=== PATIENT | female | born 1935 | race Caucasian/White ===

== ENCOUNTER → 2016-06-10 | Outpatient (CLI) | payer MEDICARE, OTHER ==
[2016-01-08 13:32] VITALS: BP 160/82
[~2016-06-10] MED LIST: ASPI-482 PO; CALC-481 PO; LANS30CA17 PO; LEVO112T4 PO; MULT-208 PO; NAPR550T3 PO; RANI150T6 PO
[2016-06-10 20:26] LABS: BF CLARITY CLOUDY; BF COLOR YELLOW
== END | disposition home or self-care (01) ==
LOC: SPEC 15:50
PROVIDERS: ATTEND Orthopaedic Surgery
DX: M25.462 Effusion, left knee (principal)
CPT/HCPCS: 87071; 87075; 87205; 89050

== ENCOUNTER → 2016-07-28 | Outpatient (CLI) | payer MEDICARE, OTHER ==
[2016-01-08 13:32] VITALS: BP 160/82
--- NOTE | 2016-07-28 13:46 | KCIC ---
LOWER EXT JOINT WO LT dated 07/28/2016 12:30 PM Indication: Knee pain for one year. Comparison: No comparison is available. Technique: Routine multiplanar multisequence imaging performed. No contrast administered. Findings: Focal areas of bone marrow edema within the subchondral marrow of the lateral femoral condyle and lateral tibial plateau with associated prominent osteochondral defects. The osteochondral defect at the lateral femoral condyle measures 7 x 10 mm with small in situ bone fragments. Fluid bright T2 signal interposed between the bone fragment and donor bone. Osteochondral defect at the lateral tibial plateau measures 7 x 13 mm with no in situ fragment and mild articular surface depression. Marrow signal is otherwise homogeneous. Mild tricompartmental hypertrophic changes, most severe in the lateral compartment. Full-thickness cartilage loss at the patellar apex and medial and lateral femoral trochlea. No definite full-thickness defect of the medial compartment cartilage. Moderate-sized joint effusion. Small popliteal cyst. No intra-articular loose body. Anterior cruciate and posterior cruciate ligaments are intact. Medial and lateral collateral complexes are intact. Iliotibial band, popliteus tendon and pes anserine complex within normal limits. Quadriceps and patellar tendon are intact. Mild increased signal within the substance of the mid patellar tendon and distal patellar tendon. No abnormality of the medial or lateral retinaculum. Horizontal oblique tear posterior horn of lateral meniscus extends to the tibial articular surface. There is also blunted morphology of the anterior horn, body and posterior horn. There is linear signal within the posterior horn and body medial meniscus that does not definitely reach an articular surface. IMPRESSION: 1. Subchondral edema within the lateral femoral condyle and lateral tibial plateau with associated osteochondral defects. In the absence of known trauma, this could be related to spontaneous osteonecrosis or impacted subchondral stress fractures. There may be a small unstable osteochondral fragment at the lateral femoral condyle. 2. Moderate size joint effusion and tiny popliteal cyst. 3. Tricompartmental degenerative arthrosis and chondral malacia. Full-thickness cartilage loss at the lateral and anterior compartments. 4. Severe degenerative tearing of the lateral meniscus. 5. Mild patellar tendinosis. Electronically signed by: Te Zamora MD (07/28/2016 1:43 PM)
== END | disposition home or self-care (01) ==
LOC: KCIC MRI 11:59
PROVIDERS: ATTEND Orthopaedic Surgery
DX: M25.562 Pain in left knee (principal); M25.462 Effusion, left knee
CPT/HCPCS: 73721

== ENCOUNTER 2016-08-02 03:50 | Inpatient (IN) | payer MEDICARE, OTHER ==
[~2016-08-02] VITALS: Ht 157.5 cm; Wt 73.5 kg
[2016-08-02] MEDS ORDERED: IV NORMAL SALINE 1000ML BAG 1,000 ML IV SCH (04:23)
[2016-08-02 04:54] LABS: CALCIUM 9.3 mg/dL (8.5-10.1); CREATININE 1.1 mg/dL (0.6-1.0); GFR 47.7; POTASSIUM 4.6 mmol/L (3.5-5.1)
[2016-08-02 04:55] LABS: BASO # 0.1 x10^3/uL (0.0-0.2); BASO % 1 % (0-3); EOS % 2 % (0-3); HEMATOCRIT 38.1 % (36.0-47.0); HEMOGLOBIN 12.6 g/dL (12.0-15.5); LYMPH # 2.4 x10^3/uL (1.0-4.8); LYMPH % 29 % (24-48); MEAN CORPUSCULAR HEMOGLOBIN 29 pg (25-35); MEAN CORPUSCULAR HGB CONC 33 g/dL (31-37); MEAN CORPUSCULAR VOLUME 89 fL (79-100); MONO % 10 % (0-9); NEUT % 58 % (31-73); PLATELET COUNT 276 x10^3/uL (140-400); RED BLOOD COUNT 4.29 x10^6/uL (3.50-5.40); RED CELL DISTRIBUTION WIDTH 13.8 % (11.5-14.5); WHITE BLOOD COUNT 8.1 x10^3/uL (4.0-11.0)
[2016-08-02 04:59] LABS: ALBUMIN 3.6 g/dL (3.4-5.0); ALBUMIN/GLOBULIN RATIO 1.1 (1.0-1.7); TOTAL BILIRUBIN 0.5 mg/dL (0.2-1.0)
[2016-08-02] MEDS ORDERED: ONDANSETRON PF 4 MG/2 ML VIAL. IV ONE (05:00)
[2016-08-02] MEDS: fentaNYL PF VIAL 100 MCG/2 ML VIAL IV PRN ×2 (05:00→05:49)
[2016-08-02] MEDS: IV NORMAL SALINE 1000ML BAG 1,000 ML IV SCH ×3 (05:17→20:44)
[2016-08-02 05:18] LABS: BILIRUBIN,URINE NEGATIVE (NEG); GLUCOSE,URINE NEGATIVE (NEG); NITRITE,URINE NEGATIVE (NEG); PROTEIN,URINE NEGATIVE (NEG-TRACE); UROBILINOGEN,URINE 0.2 mg/dL (0.2 mg/dL)
[2016-08-02 05:22] LABS: BACTERIA,URINE 0 /HPF (0-FEW); RBC,URINE 0 /HPF (0-2); SQUAMOUS EPITHELIAL CELL,UR FEW /LPF
--- NOTE | 2016-08-02 05:22 | PHYS DOC ---
Past Medical History Past Medical History: Arthritis, Hypothyroid Past Surgical History: Cholecystectomy, Hysterectomy, Tonsillectomy Alcohol Use: None Drug Use: None Adult General Chief Complaint Chief Complaint: LOWER EXT PAIN HPI HPI Patient is a 81 year old female who presents with complaint of left knee pain. Patient states that she was attempting to ambulate to the restroom earlier this evening when her left knee "locked up." Patient states that she started having severe pain to the left knee and states that she is unable to ambulate even with use of roller walker. The patient states that she is recently diagnosed with severe degenerative joint disease of the left knee and a torn left meniscus. Patient follows with Dr. Hong of orthopedic surgery. Patient states that she has been recommended to have a total knee arthroplasty done due to the severity of her joint disease. Patient currently states she is unable to fully extend her left knee secondary to pain. Patient denies any fall or significant trauma to the left knee. Patient rates her pain currently as 10 out of 10. Due to inability ambulate, EMS was called and brought patient to the emergency department for further evaluation. Review of Systems Review of Systems Constitutional: Denies fever or chills [] Eyes: Denies change in visual acuity, redness, or eye pain [] HENT: Denies nasal congestion or sore throat [] Respiratory: Denies cough or shortness of breath [] Cardiovascular: Denies chest pain or edema [] GI: Denies abdominal pain, nausea, vomiting, bloody stools or diarrhea [] : Denies dysuria or hematuria [] Musculoskeletal: Left knee pain [] Integument: Denies rash or skin lesions [] Neurologic: Denies headache, focal weakness or sensory changes [] Current Medications Current Medications Current Medications Medications (Trade) Dose Ordered Sig/Chloe Start Time Stop Time Status Last Admin Dose Admin Fentanyl Citrate (Fentanyl 2ml Vial) 25 mcg PRN Q15MIN PRN 08/02/16 04:30 08/03/16 04:29 08/02/16 05:00 25 MCG Ondansetron HCl (Zofran) 4 mg 1X ONCE 08/02/16 05:00 08/02/16 05:02 DC 08/02/16 05:00 4 MG Sodium Chloride 1,000 ml @ 100 mls/hr Q10H 08/02/16 04:23 08/02/16 14:22 08/02/16 04:45 100 MLS/HR Allergies Allergies Allergies Coded Allergies Type Severity Reaction Last Updated Verified atropine Allergy Intermediate 01/08/16 No carbamazepine Allergy Intermediate 01/08/16 Yes codeine Allergy Intermediate 01/08/16 Yes hydrocodone Allergy Intermediate 01/08/16 No hyoscyamine Allergy Intermediate 01/08/16 No latex Allergy Intermediate Rash 01/08/16 Yes penicillin Allergy Intermediate 01/08/16 Yes phenobarbital Allergy Intermediate 01/08/16 No scopolamine Allergy Intermediate 01/08/16 No Sulfa (Sulfonamide Antibiotics) Adverse Reaction Intermediate RASH 08/02/16 Yes tramadol Adverse Reaction Mild Nausea 08/02/16 Yes Physical Exam Physical Exam Constitutional: Alert, afebrile, appears in moderate discomfort. [] HENT: Normocephalic, atraumatic, bilateral external ears normal, oropharynx moist, no oral exudates, nose normal. [] Eyes: PERRLA, EOMI, conjunctiva normal, no discharge. [] Neck: Normal range of motion, no tenderness, supple, no stridor. [] Cardiovascular:Heart rate regular rhythm, no murmur [] Lungs & Thorax: Bilateral breath sounds clear to auscultation [] Abdomen: Bowel sounds normal, soft, no tenderness, no masses, no pulsatile masses. [] Skin: Warm, dry, no erythema, no rash. [] Back: No tenderness, no CVA tenderness. [] Extremities: Left knee with moderate inferior and lateral soft tissue swelling, held in flexed position, anterior and lateral joint space tenderness to palpation, no cyanosis, no clubbing, unable to extend left knee with passive range of motion secondary to pain, no edema. [] Neurologic: Alert and oriented X 3, normal motor function, normal sensory function, no focal deficits noted. [] Current Patient Data Vital Signs Vital Signs Date Time Temp Pulse Resp B/P (MAP) Pulse Ox O2 Delivery O2 Flow Rate FiO2 08/02/16 05:00 20 96 Room Air 08/02/16 03:58 98.5 77 211/87 (128) 98.5 Lab Values Laboratory Tests Test 08/02/16 04:06 08/02/16 05:00 White Blood Count 8.1 x10^3/uL (4.0-11.0) Red Blood Count 4.29 x10^6/uL (3.50-5.40) Hemoglobin 12.6 g/dL (12.0-15.5) Hematocrit 38.1 % (36.0-47.0) Mean Corpuscular Volume 89 fL (79-100) Mean Corpuscular Hemoglobin 29 pg (25-35) Mean Corpuscular Hemoglobin Concent 33 g/dL (31-37) Red Cell Distribution Width 13.8 % (11.5-14.5) Platelet Count 276 x10^3/uL (140-400) Neutrophils (%) (Auto) 58 % (31-73) Lymphocytes (%) (Auto) 29 % (24-48) Monocytes (%) (Auto) 10 % (0-9) H Eosinophils (%) (Auto) 2 % (0-3) Basophils (%) (Auto) 1 % (0-3) Neutrophils # (Auto) 4.7 x10^3uL (1.8-7.7) Lymphocytes # (Auto) 2.4 x10^3/uL (1.0-4.8) Monocytes # (Auto) 0.8 x10^3/uL (0.0-1.1) Eosinophils # (Auto) 0.2 x10^3/uL (0.0-0.7) Basophils # (Auto) 0.1 x10^3/uL (0.0-0.2) Sodium Level 139 mmol/L (136-145) Potassium Level 4.6 mmol/L (3.5-5.1) Chloride Level 103 mmol/L (98-107) Carbon Dioxide Level 26 mmol/L (21-32) Anion Gap 10 (6-14) Blood Urea Nitrogen 29 mg/dL (7-20) H Creatinine 1.1 mg/dL (0.6-1.0) H Estimated GFR (Cockcroft-Gault) 47.7 BUN/Creatinine Ratio 26 (6-20) H Glucose Level 106 mg/dL (70-99) H Calcium Level 9.3 mg/dL (8.5-10.1) Total Bilirubin 0.5 mg/dL (0.2-1.0) Aspartate Amino Transferase (AST) 18 U/L (15-37) Alanine Aminotransferase (ALT) 18 U/L (14-59) Alkaline Phosphatase 78 U/L (46-116) Total Protein 7.0 g/dL (6.4-8.2) Albumin 3.6 g/dL (3.4-5.0) Albumin/Globulin Ratio 1.1 (1.0-1.7) Urine Collection Type Unknown Urine Color Yellow Urine Clarity Clear Urine pH 6.0 Urine Specific [place] <=1.005 Urine Protein Negative mg/dL (NEG-TRACE) Urine Glucose (UA) Negative mg/dL (NEG) Urine Ketones (Stick) Negative mg/dL (NEG) Urine Blood Negative (NEG) Urine Nitrite Negative (NEG) Urine Bilirubin Negative (NEG) Urine Urobilinogen Dipstick 0.2 mg/dL (0.2 mg/dL) Urine Leukocyte Esterase Trace (NEG) Urine RBC 0 /HPF (0-2) Urine WBC 1-4 /HPF (0-4) Urine Squamous Epithelial Cells Few /LPF Urine Transitional Epithelial Cells Occ /LPF Urine Bacteria 0 /HPF (0-FEW) Laboratory Tests 08/02/16 04:06 Laboratory Tests 08/02/16 04:06 EKG EKG Not performed [] Radiology/Procedures Radiology/Procedures 3 view left knee x-ray interpreted by me: Severe lateral compartment degenerative disease, no acute fractures, normal alignment [] Course & Med Decision Making Course & Med Decision Making Pertinent Labs and Imaging studies reviewed. (See chart for details) The patient was started on IV fentanyl in the emergency department. Patient's pain has improved mildly. Patient continues to have difficulty with pain in her left knee and is unable to ambulate in her current state. The patient will be admitted for treatment of intractable pain. Patient admitted to Dr. May. Latasha Disclaimer Latasha Disclaimer This electronic medical record was generated, in whole or in part, using a voice recognition dictation system. Departure Departure Impression: Primary Impression: Intractable pain Additional Impressions: Unable to ambulate Degenerative arthritis of left knee Disposition: ADMITTED INPATIENT Admitting Physician: Lianet May Condition: STABLE Referrals: JAMES SHERIDAN Jr, MD (PCP) Problem Qualifiers Additional Impressions: Degenerative arthritis of left knee Osteoarthritis type: primary Qualified Codes: M17.12 - Unilateral primary osteoarthritis, left knee ABHIJIT GANDHI MD August 02, 2016 05:22
[2016-08-02] MEDS ORDERED: ONDANSETRON PF 4 MG/2 ML VIAL. IV PRN (05:30)
[2016-08-02] MEDS ORDERED: ACETAMINOPHEN 325 MG TABLET. PO PRN (05:30)
[2016-08-02] MEDS ORDERED: fentaNYL PF VIAL 100 MCG/2 ML VIAL IV PRN ×2 (05:30→09:00)
--- NOTE | 2016-08-02 05:34 | ACF ---
Admission Forms Criteria MUSCULOSKELETAL DISEASE GRG Clinical Indications for Admission to Inpatient Care (Place 'X' for any and all applicable criteria): Hospital admission is needed for appropriate care of the patient because of 1 or more of the following: [X]I. Fracture, dislocation, or other musculoskeletal injury requiring inpatient care(medical) as indicated by 1 or more of the following(4)(5)(6)(7) [ ]a) Vertebral fracture requiring observation for instability or neurologic compromise (8) [ ]b) Compartment syndrome (proven or cannot be ruled out during observation level of care) (9) [ ]c) Limb-threatening injury [ ]d) Major injury requiring inpatient stabilization such as traction initiation or external fixation before internal fixation or closure of complex or open fracture [ ]e) Major injury requiring inpatient treatment after emergency or observation level care (as appropriate) [X]f) Severe pain requiring acute inpatient management [ ]g) Injury with suspicion of abuse or neglect (eg., child, dependent elderly) [ ]II. Newly diagnosed or suspected bone, joint, or orthopedic device infection (e.g., osteomyelitis, septic arthritis) needing 1 or more of the following(1)(2)(3) [ ]a) IV antibiotics that cannot be initiated in other than inpatient setting (e.g., patient too unstable or home infusion not available) [ ]b) Device removal or replacement [ ]c) Bone or soft tissue debridement [ ]d) Joint drainage (drain placement or repetitive aspirations) [ ]III. Severe rheumatologic disease (e.g., systemic lupus erythematosus, rheumatoid arthritis) with complications or comorbidities (Also use Optimal Recovery Care Criteria or General Recovery Criteria as appropriate on the basis of predominant condition), including 1 or more of the following( 10)(11)(12)(13) [ ]a) Severe infection (e.g., TERRITORY ACCOUNT EXECUTIVE infection, sepsis) (14) [ ]b) Respiratory complications, including 1 or more of the following : [ ]i) Pleural effusion with respiratory compromise [ ]ii) Pulmonary hypertension with congestive failure [ ]iii) Respiratory failure [ ]iv) Pulmonary hemorrhage (15) [ ]c) Hematologic disease, including 1 or more of the following: [ ]i) Coagulopathy with bleeding [ ]ii) Thrombosis with hypercoagulable state [ ]iii) Thrombotic thrombocytopenic purpura [ ]d) Cerebritis with seizures, psychosis, or other severe abnormalities [ ]e) Vertebral destruction with monitoring needed for cervical myelopathy& possible respiratory compromise [ ]f) Exacerbation that requires inpatient treatment (e.g., intravenous immunosuppression) (16) [ ]g) Acute renal failure [ ]h) Cerebritis with seizures, psychosis, Altered mental status, or other neurologic abnormalities [ ]i) Pericardial effusion with tamponade [ ]j) Vertebral destruction, with monitoring needed for cervical myelopathy and possible respiratory compromise [ ]IV. Severe vasculitis with complications or comorbidities (Also use Optimal Recovery Care Criteria General Recovery Criteria as appropriate on the basis of predominant condition), including 1 or more of the following(11)(12)(17)(18)(19)(20) [ ]a) Exacerbation that requires inpatient treatment (e.g., intravenous immunosuppression) (19)(21) [ ]b) Pulmonary hemorrhage (15) [ ]c) TERRITORY ACCOUNT EXECUTIVE vasculitis with seizures, psychosis, Altered mental status that is severe or persistent, or other severe abnormalities (22) [ ]d) Cerebral infarction [ ]e) Gastrointestinal ischemia [ ]f) Gangrene or threatened amputation [ ]g) Renal failure (16) [ ]h) Other significant complications of vasculitis ( eg., tissue or organ ischemia, organ dysfunction ) [ ]V. Severe myopathy as indicated by 1 or more of the following (28)(29) [ ]a) New onset of airway compromise or inability to swallow [ ]b) Respiratory deterioration with observation needed for impending respiratory failure [ ]c) Exacerbation that requires inpatient treatment (e.g., intravenous immunosuppression) [ ]. Severe crystal gout (arthropathy) indicated by 1 or more of the following (23)(24) [ ]a) Severe pain requiring acute inpatient management [ ]b) Exacerbation that requires inpatient treatment (e.g., intravenous treatment) [ ]VII.Rhabdomyolysis and 1 or more of the following (25)(26)(27) [ ]a) Acute renal failure [ ]b) Need for intravenous hydration after emergency or observation level care (as appropriate) [ ]c) Inability to maintain oral hydration [ ]d) Change in mental status [ ]e) Electrolyte abnormality that remains after emergency or observation level care (as appropriate) [ ]VIII Post amputation complication, as indicated by ANY ONE of the following [ ]a) Infection [ ]b) Dehiscence [ ]c) Myodesis failure [ ]IX. Severe pain requiring acute inpatient management due to musculoskeletal condition [ ]X. Musculoskeletal Disease and ALL of the following: [ ]a) Symptom or finding for which emergency and observation care have failed or are not considered appropriate (Use General Criteria: Observation Care as appropriate) [ ]b) Presence of ANY ONE of the following [ ]i) A General Admission Criteria [ ]ii) A Pediatric General Admission Criteria The original [facility] [employer]ed [employer] content created by [facility] [employer] has been revised. The portions of the content which have been revised are identified through the use of italic text or in bold, and [facility] has neither reviewed nor approved the modified material. All other unmodified content is copyright [facility]. Please see references footnoted in the original [facility] edition 2016 Admission Criteria Met?: Yes CARLOS DONNELLY August 02, 2016 05:34
[2016-08-02 07:00] VITALS: BP 156/60
--- NOTE | 2016-08-02 07:44 | RAD ---
Left knee 3 views. History: Left knee pain, unable to straighten knee 3 views were taken of the left knee. There is a displaced bone fragment off the lateral aspect of the lateral femoral condyle with the small bone fragment at the lateral margin of the joint. There is joint space narrowing in the lateral joint compartment. 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 The pattern was noted on the recent MRI study although the bone fragment is now displaced. There is a prominent joint effusion. Impression: 1. Displaced bone fragment off the lateral aspect of the lateral femoral condyle with joint space narrowing laterally. 2. Large joint effusion.
[2016-08-02] MEDS ORDERED: FLUT9.9S NS (08:25)
[2016-08-02] MEDS ORDERED: OMEP20TA63 PO (08:25)
[2016-08-02] MEDS ORDERED: CIPR250T30 PO (08:25)
[2016-08-02] MEDS ORDERED: ACET500T68 PO (08:25)
[2016-08-02] MEDS ORDERED: NAPR500T PO (08:25)
[2016-08-02] MEDS ORDERED: CALC600T4 PO (08:25)
[2016-08-02] MEDS ORDERED: CETI10TA2 PO (08:25)
[2016-08-02] MEDS ORDERED: MORPHINE SULFATE 4 MG/ML DISP.SYRIN. IV PRN (09:00)
[2016-08-02] MEDS ORDERED: oxyCODONE IR 5 MG TABLET PO PRN (09:00)
--- NOTE | 2016-08-02 09:39 | PDOC1 ---
History and Physical Date of Admission Date of Admission DATE: 08/02/16 TIME: 09:33 Identification/Chief Complaint Chief Complaint knee pain Problems: Source Source: Chart review, Patient History of Present Illness History of Present Illness Ms. Perea, is a 81 year old female who cannot ambulate, 10/10 left knee pain. She saw Dr. Hong last week, and total knee arthroplasty was recommended. Her left knee "locked up." New 10/10, severe pain to the left knee and states that she is unable to ambulate even with use of roller walker. Pain 3/ 10 while in bed, she is unable to raise her foot off the bed surface without severe pain. Noted Hx of severe degenerative joint disease of the left knee and a torn left meniscus. Past Medical History Cardiovascular: No pertinent hx Pulmonary: No pertinent hx GI: Constipation Musculoskeletal: low back pain Rheumatologic: No pertinent hx Infectious disease: No pertinent hx Family History Family History: No Significant Social History Smoke: No ALCOHOL: none Current Problem List Problem List Problems Medical Problems: (1) Degenerative arthritis of left knee Status: Acute (2) Intractable pain Status: Acute (3) Unable to ambulate Status: Acute Problems: Current Medications Current Medications Current Medications Sodium Chloride 1,000 ml @ 100 mls/hr Q10H IV Last administered on 08/02/16 04:45; Start 08/02/16 at 04:23; Stop 08/02/16 at 14:22 Ondansetron HCl (Zofran) 4 mg 1X ONCE IV Last administered on 08/02/16 05:00 ; Start 08/02/16 at 05:00; Stop 08/02/16 at 05:02; Status DC Fentanyl Citrate (Fentanyl 2ml Vial) 25 mcg PRN Q15MIN PRN IV PAIN GREATER THAN 3/10 Last administered on 08/02/16 05:49; Start 08/02/16 at 04:30; Stop at 09:00; Status DC Ondansetron HCl (Zofran) 4 mg PRN Q8HRS PRN IV NAUSEA/VOMITING; Start 08/02/16 at 05:30; Stop 08/03/16 at 05:29 Fentanyl Citrate (Fentanyl 2ml Vial) 50 mcg PRN Q2HR PRN IV SEVERE PAIN Last administered on 08/02/16 07:32; Start 08/02/16 at 05:30; Stop 08/02/16 at 09:05 ; Status DC Sodium Chloride 1,000 ml @ 125 mls/hr Q8H IV Last administered on 08/02/16t 05 :17; Start 08/02/16 at 05:17; Stop 08/03/16 at 05:16 Acetaminophen (Tylenol) 650 mg PRN Q4HRS PRN PO FEVER; Start 08/02/16 at 05:30 ; Stop 08/03/16 at 05:29 Acetaminophen (Tylenol) 1,000 mg PRN Q8HRS PRN PO PAIN; Start 08/02/16 at 09:00 Aspirin (Ecotrin) 81 mg DAILY PO ; Start 08/02/16 at 09:00 Cetirizine HCl (ZyrTEC) 20 mg HS PO ; Start 08/02/16 at 21:00 Levothyroxine Sodium (Synthroid) 112 mcg DAILYAC PO ; Start 08/03/16 at 07:30 Naproxen (Naprosyn) 500 mg BID PO ; Start 08/02/16 at 09:00 Fluticasone Propionate (Flonase) 2 spray DAILY NS ; Start 08/03/16 at 09:00 Pantoprazole Sodium (Protonix) 40 mg DAILYAC PO ; Start 08/02/16 at 09:30 Famotidine (Pepcid) 20 mg HS PO ; Start 08/02/16 at 21:00 Oxycodone HCl (Roxicodone) 5 mg PRN Q6HRS PRN PO PAIN; Start 08/02/16 at 09:00 ; Status UNV Morphine Sulfate 4 mg PRN Q2HR PRN IV PAIN; Start 08/02/16 at 09:00; Status UNV Fentanyl Citrate (Fentanyl 2ml Vial) 50 mcg PRN Q2HR PRN IV PAIN; Start at 09:00 Active Scripts Active Reported Calcium (Calcium Carbonate) 600 Mg Tablet 600 Mg PO BID All Day Allergy (Cetirizine Hcl) 10 Mg Tablet 20 Mg PO HS Acetaminophen 500 Mg Tablet 1,000 Mg PO PRN Flonase Allergy Relief (Fluticasone Propionate) 9.9 Ml [place].susp 2 Sprays NS DAILY Cipro (Ciprofloxacin Hcl) 250 Mg Tablet 1 Tab PO BID Naprosyn (Naproxen) 500 Mg Tablet 500 Mg PO BID Prilosec Otc (Omeprazole Magnesium) 20 Mg Tablet. 1 Tab PO DAILY Multi-Day Vitamins (Multivitamin) 1 Each Tablet 1 Tab PO DAILY Zantac (Ranitidine Hcl) 150 Mg Tablet 150 Mg PO DAILY Aspir 81 (Aspirin) 81 Mg Tablet. 1 Tab PO DAILY Levothyroxine Sodium 112 Mcg Tablet 112 Mcg PO DAILYAC Allergies Allergies: Coded Allergies: atropine (Unverified Allergy, Intermediate, 01/08/16) carbamazepine (Verified Allergy, Intermediate, 01/08/16) codeine (Verified Allergy, Intermediate, 01/08/16) hydrocodone (Unverified Allergy, Intermediate, 01/08/16) hyoscyamine (Unverified Allergy, Intermediate, 01/08/16) latex (Verified Allergy, Intermediate, Rash, 01/08/16) penicillin (Verified Allergy, Intermediate, 01/08/16) phenobarbital (Unverified Allergy, Intermediate, 01/08/16) scopolamine (Unverified Allergy, Intermediate, 01/08/16) Sulfa (Sulfonamide Antibiotics) (Verified Adverse Reaction, Intermediate, RASH, 08/02/16) tramadol (Verified Adverse Reaction, Mild, Nausea, 08/02/16) ROS General: No: Chills, Night Sweats, Fatigue, Malaise, Appetite, Other PSYCHOLOGICAL ROS: No: Anxiety, Behavioral Disorder, Concentration difficultie , Decreased libido, Depression, Disorientation, Hallucinations, Hostility, Irritablity, Memory difficulties, Mood Swings, Obsessive thoughts, Physical abuse, Sexual abuse, Sleep disturbances, Suicidal ideation, Other Eyes: No Blurry vision, No Decreased vision, No Double vision, No Dry eyes, No Excessive tearing, No Eye Pain, No Itchy Eyes, No Loss of vision, No Photophobia , No Scotomata, No Uses contacts, No Uses glasses, No Other HEENT: No: Heacaches, Visual Changes, Hearing change, Nasal congestion, Nasal discharge, Oral lesions, Sinus pain, Sore Throat, Epistaxis, Sneezing, Snoring, Tinnitus, Vertigo, Vocal changes, Other ENDOCRINE: No: Breast Changes, Galactorrhea, Hair Pattern Changes, Hot Flashes , Malaise/lethargy, Mood Swings, Palpitations, Polydipsia/polyuria, Skin Changes , Temperature Intolerance, Unexpected Weight Changes, Other Breast: No New/Changing Breast Lumps, No Nipple changes, No Nipple discharge, No Other Respiratory: No: Cough, Hemoptysis, Orthopnea, Pleuritic Pain, Shortness of breath, SOB with excertion, Sputum Changes, Stridor, Tachypnea, Wheezing, Other Cardiovascular: No Chest Pain, No Palpitations, No Orthopnea, No Paroxysmal Noc. Dyspnea, No Edema, No Lt Headedness, No Other Gastrointestinal: No Nausea, No Vomiting, No Abdominal Pain, No Diarrhea, No Constipation, No Melena, No Hematochezia, No Other Genitourinary: No Dysuria, No Frequency, No Incontinence, No Hematuria, No Retention, No Discharge, No Urgency, No Pain, No Flank Pain, No Other, No , No , No , No , No , No , No Musculoskeletal: Yes Gait Disturbance, Yes Joint Pain, Yes Joint Stiffness, No Joint Swelling, No Muscle Pain, No Muscular Weakness, No Pain In:, No Swelling In:, No Other Neurological: No Behavorial Changes, No Bowel/Bladder ControlChng, No Confusion , No Dizziness, No Gait Disturbance, No Headaches, No Impaired Coord/balance, No Memory Loss, No Numbness/Tingling, No Seizures, No Speech Problems, No Tremors, No Visual Changes, No Weakness, No Other Skin: No Dry Skin, No Eczema, No Hair Changes, No Lumps, No Mole Changes, No Mottling, No Nail Changes, No Pruritus, No Rash, No Skin Lesion Changes, No Other, No Acne Physical Exam General: Alert, Oriented X3, Cooperative HEENT: Atraumatic, PERRLA Lungs: Clear to auscultation Heart: S1S2, RRR Abdomen: Normal bowel sounds, Soft Extremities: No clubbing, No cyanosis Skin: No rashes, No breakdown Neuro: Normal gait, Normal speech Psych/Mental Status: Mental status NL Vitals Vitals Vital Signs Date Time Temp Pulse Resp B/P (MAP) Pulse Ox O2 Delivery O2 Flow Rate FiO2 08/02/16 07:00 98.4 75 18 156/60 (92) 94 Room Air 98.4 Labs Labs Laboratory Tests Test 08/02/16 04:06 08/02/16 05:00 White Blood Count 8.1 x10^3/uL (4.0-11.0) Red Blood Count 4.29 x10^6/uL (3.50-5.40) Hemoglobin 12.6 g/dL (12.0-15.5) Hematocrit 38.1 % (36.0-47.0) Mean Corpuscular Volume 89 fL (79-100) Mean Corpuscular Hemoglobin 29 pg (25-35) Mean Corpuscular Hemoglobin Concent 33 g/dL (31-37) Red Cell Distribution Width 13.8 % (11.5-14.5) Platelet Count 276 x10^3/uL (140-400) Neutrophils (%) (Auto) 58 % (31-73) Lymphocytes (%) (Auto) 29 % (24-48) Monocytes (%) (Auto) 10 % (0-9) Eosinophils (%) (Auto) 2 % (0-3) Basophils (%) (Auto) 1 % (0-3) Neutrophils # (Auto) 4.7 x10^3uL (1.8-7.7) Lymphocytes # (Auto) 2.4 x10^3/uL (1.0-4.8) Monocytes # (Auto) 0.8 x10^3/uL (0.0-1.1) Eosinophils # (Auto) 0.2 x10^3/uL (0.0-0.7) Basophils # (Auto) 0.1 x10^3/uL (0.0-0.2) Sodium Level 139 mmol/L (136-145) Potassium Level 4.6 mmol/L (3.5-5.1) Chloride Level 103 mmol/L (98-107) Carbon Dioxide Level 26 mmol/L (21-32) Anion Gap 10 (6-14) Blood Urea Nitrogen 29 mg/dL (7-20) Creatinine 1.1 mg/dL (0.6-1.0) Estimated GFR (Cockcroft-Gault) 47.7 BUN/Creatinine Ratio 26 (6-20) Glucose Level 106 mg/dL (70-99) Calcium Level 9.3 mg/dL (8.5-10.1) Total Bilirubin 0.5 mg/dL (0.2-1.0) Aspartate Amino Transf (AST/SGOT) 18 U/L (15-37) Alanine Aminotransferase (ALT/SGPT) 18 U/L (14-59) Alkaline Phosphatase 78 U/L (46-116) Total Protein 7.0 g/dL (6.4-8.2) Albumin 3.6 g/dL (3.4-5.0) Albumin/Globulin Ratio 1.1 (1.0-1.7) Urine Collection Type Unknown Urine Color Yellow Urine Clarity Clear Urine pH 6.0 Urine Specific [place] <=1.005 Urine Protein Negative mg/dL (NEG-TRACE) Urine Glucose (UA) Negative mg/dL (NEG) Urine Ketones (Stick) Negative mg/dL (NEG) Urine Blood Negative (NEG) Urine Nitrite Negative (NEG) Urine Bilirubin Negative (NEG) Urine Urobilinogen Dipstick 0.2 mg/dL (0.2 mg/dL) Urine Leukocyte Esterase Trace (NEG) Urine RBC 0 /HPF (0-2) Urine WBC 1-4 /HPF (0-4) Urine Squamous Epithelial Cells Few /LPF Urine Transitional Epithelial Cells Occ /LPF Urine Bacteria 0 /HPF (0-FEW) Laboratory Tests Test 08/02/16 04:06 08/02/16 05:00 White Blood Count 8.1 x10^3/uL (4.0-11.0) Red Blood Count 4.29 x10^6/uL (3.50-5.40) Hemoglobin 12.6 g/dL (12.0-15.5) Hematocrit 38.1 % (36.0-47.0) Mean Corpuscular Volume 89 fL (79-100) Mean Corpuscular Hemoglobin 29 pg (25-35) Mean Corpuscular Hemoglobin Concent 33 g/dL (31-37) Red Cell Distribution Width 13.8 % (11.5-14.5) Platelet Count 276 x10^3/uL (140-400) Neutrophils (%) (Auto) 58 % (31-73) Lymphocytes (%) (Auto) 29 % (24-48) Monocytes (%) (Auto) 10 % (0-9) Eosinophils (%) (Auto) 2 % (0-3) Basophils (%) (Auto) 1 % (0-3) Neutrophils # (Auto) 4.7 x10^3uL (1.8-7.7) Lymphocytes # (Auto) 2.4 x10^3/uL (1.0-4.8) Monocytes # (Auto) 0.8 x10^3/uL (0.0-1.1) Eosinophils # (Auto) 0.2 x10^3/uL (0.0-0.7) Basophils # (Auto) 0.1 x10^3/uL (0.0-0.2) Sodium Level 139 mmol/L (136-145) Potassium Level 4.6 mmol/L (3.5-5.1) Chloride Level 103 mmol/L (98-107) Carbon Dioxide Level 26 mmol/L (21-32) Anion Gap 10 (6-14) Blood Urea Nitrogen 29 mg/dL (7-20) Creatinine 1.1 mg/dL (0.6-1.0) Estimated GFR (Cockcroft-Gault) 47.7 BUN/Creatinine Ratio 26 (6-20) Glucose Level 106 mg/dL (70-99) Calcium Level 9.3 mg/dL (8.5-10.1) Total Bilirubin 0.5 mg/dL (0.2-1.0) Aspartate Amino Transf (AST/SGOT) 18 U/L (15-37) Alanine Aminotransferase (ALT/SGPT) 18 U/L (14-59) Alkaline Phosphatase 78 U/L (46-116) Total Protein 7.0 g/dL (6.4-8.2) Albumin 3.6 g/dL (3.4-5.0) Albumin/Globulin Ratio 1.1 (1.0-1.7) Urine Collection Type Unknown Urine Color Yellow Urine Clarity Clear Urine pH 6.0 Urine Specific [place] <=1.005 Urine Protein Negative mg/dL (NEG-TRACE) Urine Glucose (UA) Negative mg/dL (NEG) Urine Ketones (Stick) Negative mg/dL (NEG) Urine Blood Negative (NEG) Urine Nitrite Negative (NEG) Urine Bilirubin Negative (NEG) Urine Urobilinogen Dipstick 0.2 mg/dL (0.2 mg/dL) Urine Leukocyte Esterase Trace (NEG) Urine RBC 0 /HPF (0-2) Urine WBC 1-4 /HPF (0-4) Urine Squamous Epithelial Cells Few /LPF Urine Transitional Epithelial Cells Occ /LPF Urine Bacteria 0 /HPF (0-FEW) VTE Prophylaxis Ordered VTE Prophylaxis Devices: No VTE Pharmacological Prophylaxi: Yes Assessment/Plan Assessment/Plan knee pain severe pain, unable to ambulate, 10/10 pain, unable to do ADLs mult drug allergies, pain control with tylenol, NSAID, fentanyl, may try oxycodone, hx of nausea and vomiting with codeine hypothyroid GERD 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
[2016-08-02] MEDS: PANTOPRAZOLE 40 MG TABLET.DR. PO SCH (10:03)
[2016-08-02] MEDS: ASPIRIN ENTERIC COATED 81 MG TABLET.DR. PO SCH (10:04)
[2016-08-02] MEDS: NAPROXEN 500 MG TABLET PO SCH ×2 (10:04→20:45)
[2016-08-02] MEDS: ACETAMINOPHEN 500 MG TABLET PO PRN ×2 (10:06→23:22)
[2016-08-02 11:00] VITALS: BP 136/62
--- NOTE | 2016-08-02 12:13 | PDOC2 ---
CONSULT Date of Consult Date of Consult DATE: 08/02/16 TIME: 12:04 Reason for Consult Reason for Consult: left kne Identification/Chief Complaint Chief Complaint left knee locked up Source Source: Caregiver, Chart review, Patient History of Present Illness Reason for Visit: 81 year old familiar to me from office visits last 2 months. Presented with recurrent effusions, initially treated with aspiration and cortisone injections. Office x-rays a few months ago showed minimal joint space narrowing , so MRI ordered to evaluate for meniscus tear. The MRI showed lateral meniscus tear, osteonecrosis, and osteoarthritis. Nonop treatment was continued , with plans to consider elective TKA. She finished oral steroid dosepack Tuesday. She also started Cipro Tuesday. Now her knee is locked up and the osteonecrosis fragment is a loose body. We discussed options. Although a TKA is probably going to be needed, TKA is contra-indicated with the recent corticosteroid injections. Current literature supports waiting 12 weeks after cortisone injection in the affected joint before arthroplasty, to avoid risks of prosthetic joint infection. I discussed all of this with her, and her son, her DIL who is an ortho nurse, and other family. Past Medical History Past Medical History she had iron deficiency anemia recently, but it's been treated with iron infusion, and last hgb was 12.6 Cardiovascular: No pertinent hx Pulmonary: No pertinent hx GI: Constipation Musculoskeletal: low back pain Rheumatologic: No pertinent hx Infectious disease: No pertinent hx Family History Family History: No Significant Social History No ALCOHOL: none Current Problem List Problem List Problems Medical Problems: (1) Degenerative arthritis of left knee Status: Acute (2) Intractable pain Status: Acute (3) Unable to ambulate Status: Acute Current Medications Current Medications Current Medications Sodium Chloride 1,000 ml @ 100 mls/hr Q10H IV Last administered on 08/02/16 04:45; Start 08/02/16 at 04:23; Stop 08/02/16 at 14:22 Ondansetron HCl (Zofran) 4 mg 1X ONCE IV Last administered on 08/02/16 05:00 ; Start 08/02/16 at 05:00; Stop 08/02/16 at 05:02; Status DC Fentanyl Citrate (Fentanyl 2ml Vial) 25 mcg PRN Q15MIN PRN IV PAIN GREATER THAN 3/10 Last administered on 08/02/16 05:49; Start 08/02/16 at 04:30; Stop at 09:00; Status DC Ondansetron HCl (Zofran) 4 mg PRN Q8HRS PRN IV NAUSEA/VOMITING; Start 08/02/16 at 05:30; Stop 08/03/16 at 05:29 Fentanyl Citrate (Fentanyl 2ml Vial) 50 mcg PRN Q2HR PRN IV SEVERE PAIN Last administered on 08/02/16 07:32; Start 08/02/16 at 05:30; Stop 08/02/16 at 09:05 ; Status DC Sodium Chloride 1,000 ml @ 125 mls/hr Q8H IV Last administered on 08/02/16 05 :17; Start 08/02/16 at 05:17; Stop 08/03/16 at 05:16 Acetaminophen (Tylenol) 650 mg PRN Q4HRS PRN PO FEVER; Start 08/02/16 at 05:30 ; Stop 08/03/16 at 05:29 Acetaminophen (Tylenol) 1,000 mg PRN Q8HRS PRN PO PAIN Last administered on 10:06; Start 08/02/16 at 09:00 Aspirin (Ecotrin) 81 mg DAILY PO Last administered on 08/02/16 10:04; Start at 09:00 Cetirizine HCl (ZyrTEC) 20 mg HS PO ; Start 08/02/16 at 21:00 Levothyroxine Sodium (Synthroid) 112 mcg DAILYAC PO ; Start 08/03/16 at 07:30 Naproxen (Naprosyn) 500 mg BID PO Last administered on 08/02/16 10:04; Start 08/02/16 at 09:00 Fluticasone Propionate (Flonase) 2 spray DAILY NS ; Start 08/03/16 at 09:00 Pantoprazole Sodium (Protonix) 40 mg DAILYAC PO Last administered on 08/02/16 10:03; Start 08/02/16 at 09:30 Famotidine (Pepcid) 20 mg HS PO ; Start 08/02/16 at 21:00 Oxycodone HCl (Roxicodone) 5 mg PRN Q6HRS PRN PO PAIN; Start 08/02/16 at 09:00 ; Status UNV Morphine Sulfate 4 mg PRN Q2HR PRN IV PAIN; Start 08/02/16 at 09:00; Status UNV Fentanyl Citrate (Fentanyl 2ml Vial) 50 mcg PRN Q2HR PRN IV PAIN; Start at 09:00 Active Scripts Active Reported Calcium (Calcium Carbonate) 600 Mg Tablet 600 Mg PO BID All Day Allergy (Cetirizine Hcl) 10 Mg Tablet 20 Mg PO HS Acetaminophen 500 Mg Tablet 1,000 Mg PO PRN Flonase Allergy Relief (Fluticasone Propionate) 9.9 Ml [place].susp 2 Sprays NS DAILY Cipro (Ciprofloxacin Hcl) 250 Mg Tablet 1 Tab PO BID Naprosyn (Naproxen) 500 Mg Tablet 500 Mg PO BID Prilosec Otc (Omeprazole Magnesium) 20 Mg Tablet.dr 1 Tab PO DAILY Multi-Day Vitamins (Multivitamin) 1 Each Tablet 1 Tab PO DAILY Zantac (Ranitidine Hcl) 150 Mg Tablet 150 Mg PO DAILY Aspir 81 (Aspirin) 81 Mg Tablet.dr 1 Tab PO DAILY Levothyroxine Sodium 112 Mcg Tablet 112 Mcg PO DAILYAC Allergies Allergies: Coded Allergies: atropine (Unverified Allergy, Intermediate, 01/08/16) carbamazepine (Verified Allergy, Intermediate, 01/08/16) codeine (Verified Allergy, Intermediate, 01/08/16) hydrocodone (Unverified Allergy, Intermediate, 01/08/16) hyoscyamine (Unverified Allergy, Intermediate, 01/08/16) latex (Verified Allergy, Intermediate, Rash, 01/08/16) penicillin (Verified Allergy, Intermediate, 01/08/16) phenobarbital (Unverified Allergy, Intermediate, 01/08/16) scopolamine (Unverified Allergy, Intermediate, 01/08/16) Sulfa (Sulfonamide Antibiotics) (Verified Adverse Reaction, Intermediate, RASH, 08/02/16) tramadol (Verified Adverse Reaction, Mild, Nausea, 08/02/16) Physical Exam General: Alert, Cooperative HEENT: Atraumatic Lungs: Normal air movement Heart: Regular rate Abdomen: Soft Extremities: Other (large effusion left knee, no erythema or warmth, knee locked at 30 degrees of flexion, distal NVI) Skin: No significant lesion Neuro: Normal tone, Sensation intact Psych/Mental Status: Mental status NL, Mood NL MUSCULOSKELETAL: Abnormal exam of left (knee with large ostearthritis effusion) Vitals VITALS Vital Signs Date Time Temp Pulse Resp B/P (MAP) Pulse Ox O2 Delivery O2 Flow Rate FiO2 08/02/16 07:00 98.4 75 18 156/60 (92) 94 Room Air 98.4 Labs Labs Laboratory Tests Test 08/02/16 04:06 08/02/16 05:00 White Blood Count 8.1 x10^3/uL (4.0-11.0) Red Blood Count 4.29 x10^6/uL (3.50-5.40) Hemoglobin 12.6 g/dL (12.0-15.5) Hematocrit 38.1 % (36.0-47.0) Mean Corpuscular Volume 89 fL (79-100) Mean Corpuscular Hemoglobin 29 pg (25-35) Mean Corpuscular Hemoglobin Concent 33 g/dL (31-37) Red Cell Distribution Width 13.8 % (11.5-14.5) Platelet Count 276 x10^3/uL (140-400) Neutrophils (%) (Auto) 58 % (31-73) Lymphocytes (%) (Auto) 29 % (24-48) Monocytes (%) (Auto) 10 % (0-9) Eosinophils (%) (Auto) 2 % (0-3) Basophils (%) (Auto) 1 % (0-3) Neutrophils # (Auto) 4.7 x10^3uL (1.8-7.7) Lymphocytes # (Auto) 2.4 x10^3/uL (1.0-4.8) Monocytes # (Auto) 0.8 x10^3/uL (0.0-1.1) Eosinophils # (Auto) 0.2 x10^3/uL (0.0-0.7) Basophils # (Auto) 0.1 x10^3/uL (0.0-0.2) Sodium Level 139 mmol/L (136-145) Potassium Level 4.6 mmol/L (3.5-5.1) Chloride Level 103 mmol/L (98-107) Carbon Dioxide Level 26 mmol/L (21-32) Anion Gap 10 (6-14) Blood Urea Nitrogen 29 mg/dL (7-20) Creatinine 1.1 mg/dL (0.6-1.0) Estimated GFR (Cockcroft-Gault) 47.7 BUN/Creatinine Ratio 26 (6-20) Glucose Level 106 mg/dL (70-99) Calcium Level 9.3 mg/dL (8.5-10.1) Total Bilirubin 0.5 mg/dL (0.2-1.0) Aspartate Amino Transf (AST/SGOT) 18 U/L (15-37) Alanine Aminotransferase (ALT/SGPT) 18 U/L (14-59) Alkaline Phosphatase 78 U/L (46-116) Total Protein 7.0 g/dL (6.4-8.2) Albumin 3.6 g/dL (3.4-5.0) Albumin/Globulin Ratio 1.1 (1.0-1.7) Urine Collection Type Unknown Urine Color Yellow Urine Clarity Clear Urine pH 6.0 Urine Specific [place] <=1.005 Urine Protein Negative mg/dL (NEG-TRACE) Urine Glucose (UA) Negative mg/dL (NEG) Urine Ketones (Stick) Negative mg/dL (NEG) Urine Blood Negative (NEG) Urine Nitrite Negative (NEG) Urine Bilirubin Negative (NEG) Urine Urobilinogen Dipstick 0.2 mg/dL (0.2 mg/dL) Urine Leukocyte Esterase Trace (NEG) Urine RBC 0 /HPF (0-2) Urine WBC 1-4 /HPF (0-4) Urine Squamous Epithelial Cells Few /LPF Urine Transitional Epithelial Cells Occ /LPF Urine Bacteria 0 /HPF (0-FEW) Laboratory Tests Test 08/02/16 04:06 08/02/16 05:00 White Blood Count 8.1 x10^3/uL (4.0-11.0) Red Blood Count 4.29 x10^6/uL (3.50-5.40) Hemoglobin 12.6 g/dL (12.0-15.5) Hematocrit 38.1 % (36.0-47.0) Mean Corpuscular Volume 89 fL (79-100) Mean Corpuscular Hemoglobin 29 pg (25-35) Mean Corpuscular Hemoglobin Concent 33 g/dL (31-37) Red Cell Distribution Width 13.8 % (11.5-14.5) Platelet Count 276 x10^3/uL (140-400) Neutrophils (%) (Auto) 58 % (31-73) Lymphocytes (%) (Auto) 29 % (24-48) Monocytes (%) (Auto) 10 % (0-9) Eosinophils (%) (Auto) 2 % (0-3) Basophils (%) (Auto) 1 % (0-3) Neutrophils # (Auto) 4.7 x10^3uL (1.8-7.7) Lymphocytes # (Auto) 2.4 x10^3/uL (1.0-4.8) Monocytes # (Auto) 0.8 x10^3/uL (0.0-1.1) Eosinophils # (Auto) 0.2 x10^3/uL (0.0-0.7) Basophils # (Auto) 0.1 x10^3/uL (0.0-0.2) Sodium Level 139 mmol/L (136-145) Potassium Level 4.6 mmol/L (3.5-5.1) Chloride Level 103 mmol/L (98-107) Carbon Dioxide Level 26 mmol/L (21-32) Anion Gap 10 (6-14) Blood Urea Nitrogen 29 mg/dL (7-20) Creatinine 1.1 mg/dL (0.6-1.0) Estimated GFR (Cockcroft-Gault) 47.7 BUN/Creatinine Ratio 26 (6-20) Glucose Level 106 mg/dL (70-99) Calcium Level 9.3 mg/dL (8.5-10.1) Total Bilirubin 0.5 mg/dL (0.2-1.0) Aspartate Amino Transf (AST/SGOT) 18 U/L (15-37) Alanine Aminotransferase (ALT/SGPT) 18 U/L (14-59) Alkaline Phosphatase 78 U/L (46-116) Total Protein 7.0 g/dL (6.4-8.2) Albumin 3.6 g/dL (3.4-5.0) Albumin/Globulin Ratio 1.1 (1.0-1.7) Urine Collection Type Unknown Urine Color Yellow Urine Clarity Clear Urine pH 6.0 Urine Specific [place] <=1.005 Urine Protein Negative mg/dL (NEG-TRACE) Urine Glucose (UA) Negative mg/dL (NEG) Urine Ketones (Stick) Negative mg/dL (NEG) Urine Blood Negative (NEG) Urine Nitrite Negative (NEG) Urine Bilirubin Negative (NEG) Urine Urobilinogen Dipstick 0.2 mg/dL (0.2 mg/dL) Urine Leukocyte Esterase Trace (NEG) Urine RBC 0 /HPF (0-2) Urine WBC 1-4 /HPF (0-4) Urine Squamous Epithelial Cells Few /LPF Urine Transitional Epithelial Cells Occ /LPF Urine Bacteria 0 /HPF (0-FEW) Images Images X-rays and MRI reviewed. Assessment/Plan Assessment/Plan Locked knee, with loose body and lateral meniscus tear, and effusion. Recent corticosteroid injections make TKA contra-indicated. I recommend arthroscopic loose body removal and lateral meniscectomy. She will likely need a TKA later this year, but we can reassess after the scope and results. She and her family agree with this plan. AD ALCANTARA MD August 02, 2016 12:13
[2016-08-02 15:00] VITALS: BP 145/65
[2016-08-02] MEDS: KETOROLAC TROMETHAMINE 30 MG/ML INJ. IV SCH (18:18)
[2016-08-02] MEDS: PSYLLIUM HUSK (SUGAR FREE) 1 PKT PACKET PO SCH (18:29)
[2016-08-02 19:00] VITALS: BP 135/58
[2016-08-02] MEDS: CETIRIZINE HCL 10 MG TABLET. PO SCH (20:45)
[2016-08-02] MEDS: FAMOTIDINE 20 MG TABLET. PO SCH (20:45)
[2016-08-02 23:00] VITALS: BP 153/56
[2016-08-02] MEDS: ZOLPIDEM 5 MG TABLET. PO PRN (23:22)
[2016-08-03] VITALS (15 sets, daily range): BP systolic 117–170; BP diastolic 44–81
[2016-08-03] MEDS: KETOROLAC TROMETHAMINE 30 MG/ML INJ. IV SCH ×4 (00:13→18:35)
[2016-08-03 05:55] LABS: BASO # 0.1 x10^3/uL (0.0-0.2); BASO % 1 % (0-3); EOS % 3 % (0-3); HEMOGLOBIN 11.5 g/dL (12.0-15.5); LYMPH % 33 % (24-48); MEAN CORPUSCULAR HEMOGLOBIN 30 pg (25-35); MEAN CORPUSCULAR HGB CONC 34 g/dL (31-37); MEAN CORPUSCULAR VOLUME 88 fL (79-100); MONO % 10 % (0-9); NEUT % 52 % (31-73); PLATELET COUNT 231 x10^3/uL (140-400); RED BLOOD COUNT 3.86 x10^6/uL (3.50-5.40)
[2016-08-03 06:08] LABS: CALCIUM 8.4 mg/dL (8.5-10.1); CREATININE 0.7 mg/dL (0.6-1.0); GFR 80.3; POTASSIUM 4.4 mmol/L (3.5-5.1)
[2016-08-03] MEDS: PANTOPRAZOLE 40 MG TABLET.DR. PO SCH (07:18)
[2016-08-03] MEDS: LEVOTHYROXINE 112 MCG TABLET PO SCH (07:18)
[2016-08-03] MEDS: FLUTICASONE 50MCG/NASAL SPRAY 16GM BOTTLE. NS SCH (08:30)
[2016-08-03] MEDS: ASPIRIN ENTERIC COATED 81 MG TABLET.DR. PO SCH (08:30)
[2016-08-03] MEDS: NAPROXEN 500 MG TABLET PO SCH ×2 (08:31→20:53)
[2016-08-03] MEDS: PSYLLIUM HUSK (SUGAR FREE) 1 PKT PACKET PO SCH (08:31)
[2016-08-03] MEDS ORDERED: CLINDAMYCIN 600MG PREMIX 50 ML IV PRN (10:00)
[2016-08-03] MEDS ORDERED: LIDOCAINE 2% PF Vial for OR 5 ML VIAL. ONE (12:01)
[2016-08-03] MEDS ORDERED: PROPOFOL 20 ML IV ONE (12:01)
[2016-08-03] MEDS ORDERED: DEXAMETHASONE SOD PHOS 20 MG/5 ML VIAL. ONE (12:01)
[2016-08-03] MEDS ORDERED: ONDANSETRON PF 4 MG/2 ML VIAL. ONE (12:01)
[2016-08-03] MEDS ORDERED: FAMOTIDINE 20 MG/2 ML VIAL ONE (12:01)
[2016-08-03] MEDS ORDERED: BUPIVACAINE-EPI 0.25%-1:200000 50 ML VIAL. ONE (12:40)
[2016-08-03] MEDS ORDERED: EPINEPHrine VIAL 30 MG/30 ML VIAL ONE (13:12)
[2016-08-03] MEDS ORDERED: fentaNYL PF VIAL 100 MCG/2 ML VIAL ONE ×2 (13:17→14:08)
--- NOTE | 2016-08-03 13:18 | PDOC ---
PROGRESS NOTES Chief Complaint Chief Complaint knee pain severe pain, unable to ambulate, 10/10 pain, unable to do ADLs Locked knee, with loose body and lateral meniscus tear, and effusion. hypothyroid GERD dehydration on CKD 2 History of Present Illness History of Present Illness out for arthroscopic loose body removal and lateral meniscectomy today cont pain control, plan SNU likely pain control with tylenol, NSAID, fentanyl, may try oxycodone, hx of nausea and vomiting with codeine Vitals Vitals Vital Signs Date Time Temp Pulse Resp B/P (MAP) Pulse Ox O2 Delivery O2 Flow Rate FiO2 08/03/16 12:07 97.8 65 12 158/74 97 Room Air 97.8 Physical Exam General: Alert, Cooperative Heart: Regular rate Abdomen: Soft Extremities: Other (large effusion left knee, no erythema or warmth, knee locked at 30 degrees of flexion, distal NVI) Skin: No significant lesion Labs LABS Laboratory Tests Test 08/03/16 05:00 White Blood Count 6.0 x10^3/uL (4.0-11.0) Red Blood Count 3.86 x10^6/uL (3.50-5.40) Hemoglobin 11.5 g/dL (12.0-15.5) Hematocrit 34.0 % (36.0-47.0) Mean Corpuscular Volume 88 fL (79-100) Mean Corpuscular Hemoglobin 30 pg (25-35) Mean Corpuscular Hemoglobin Concent 34 g/dL (31-37) Red Cell Distribution Width 14.0 % (11.5-14.5) Platelet Count 231 x10^3/uL (140-400) Neutrophils (%) (Auto) 52 % (31-73) Lymphocytes (%) (Auto) 33 % (24-48) Monocytes (%) (Auto) 10 % (0-9) Eosinophils (%) (Auto) 3 % (0-3) Basophils (%) (Auto) 1 % (0-3) Neutrophils # (Auto) 3.1 x10^3uL (1.8-7.7) Lymphocytes # (Auto) 2.0 x10^3/uL (1.0-4.8) Monocytes # (Auto) 0.6 x10^3/uL (0.0-1.1) Eosinophils # (Auto) 0.2 x10^3/uL (0.0-0.7) Basophils # (Auto) 0.1 x10^3/uL (0.0-0.2) Sodium Level 144 mmol/L (136-145) Potassium Level 4.4 mmol/L (3.5-5.1) Chloride Level 110 mmol/L (98-107) Carbon Dioxide Level 26 mmol/L (21-32) Anion Gap 8 (6-14) Blood Urea Nitrogen 19 mg/dL (7-20) Creatinine 0.7 mg/dL (0.6-1.0) Estimated GFR (Cockcroft-Gault) 80.3 Glucose Level 86 mg/dL (70-99) Calcium Level 8.4 mg/dL (8.5-10.1) Assessment and Plan Assessmemt and Plan Problems Medical Problems: (1) Degenerative arthritis of left knee Status: Acute (2) Intractable pain Status: Acute (3) Unable to ambulate Status: Acute Problems: Comment Review of Relevant I have reviewed the following items hollie (where applicable) has been applied. Labs Laboratory Tests Test 08/02/16 04:06 08/02/16 05:00 08/03/16 05:00 White Blood Count 8.1 x10^3/uL (4.0-11.0) 6.0 x10^3/uL (4.0-11.0) Red Blood Count 4.29 x10^6/uL (3.50-5.40) 3.86 x10^6/uL (3.50-5.40) Hemoglobin 12.6 g/dL (12.0-15.5) 11.5 g/dL (12.0-15.5) Hematocrit 38.1 % (36.0-47.0) 34.0 % (36.0-47.0) Mean Corpuscular Volume 89 fL (79-100) 88 fL (79-100) Mean Corpuscular Hemoglobin 29 pg (25-35) 30 pg (25-35) Mean Corpuscular Hemoglobin Concent 33 g/dL (31-37) 34 g/dL (31-37) Red Cell Distribution Width 13.8 % (11.5-14.5) 14.0 % (11.5-14.5) Platelet Count 276 x10^3/uL (140-400) 231 x10^3/uL (140-400) Neutrophils (%) (Auto) 58 % (31-73) 52 % (31-73) Lymphocytes (%) (Auto) 29 % (24-48) 33 % (24-48) Monocytes (%) (Auto) 10 % (0-9) 10 % (0-9) Eosinophils (%) (Auto) 2 % (0-3) 3 % (0-3) Basophils (%) (Auto) 1 % (0-3) 1 % (0-3) Neutrophils # (Auto) 4.7 x10^3uL (1.8-7.7) 3.1 x10^3uL (1.8-7.7) Lymphocytes # (Auto) 2.4 x10^3/uL (1.0-4.8) 2.0 x10^3/uL (1.0-4.8) Monocytes # (Auto) 0.8 x10^3/uL (0.0-1.1) 0.6 x10^3/uL (0.0-1.1) Eosinophils # (Auto) 0.2 x10^3/uL (0.0-0.7) 0.2 x10^3/uL (0.0-0.7) Basophils # (Auto) 0.1 x10^3/uL (0.0-0.2) 0.1 x10^3/uL (0.0-0.2) Sodium Level 139 mmol/L (136-145) 144 mmol/L (136-145) Potassium Level 4.6 mmol/L (3.5-5.1) 4.4 mmol/L (3.5-5.1) Chloride Level 103 mmol/L (98-107) 110 mmol/L (98-107) Carbon Dioxide Level 26 mmol/L (21-32) 26 mmol/L (21-32) Anion Gap 10 (6-14) 8 (6-14) Blood Urea Nitrogen 29 mg/dL (7-20) 19 mg/dL (7-20) Creatinine 1.1 mg/dL (0.6-1.0) 0.7 mg/dL (0.6-1.0) Estimated GFR (Cockcroft-Gault) 47.7 80.3 BUN/Creatinine Ratio 26 (6-20) Glucose Level 106 mg/dL (70-99) 86 mg/dL (70-99) Calcium Level 9.3 mg/dL (8.5-10.1) 8.4 mg/dL (8.5-10.1) Total Bilirubin 0.5 mg/dL (0.2-1.0) Aspartate Amino Transf (AST/SGOT) 18 U/L (15-37) Alanine Aminotransferase (ALT/SGPT) 18 U/L (14-59) Alkaline Phosphatase 78 U/L (46-116) Total Protein 7.0 g/dL (6.4-8.2) Albumin 3.6 g/dL (3.4-5.0) Albumin/Globulin Ratio 1.1 (1.0-1.7) Urine Collection Type Unknown Urine Color Yellow Urine Clarity Clear Urine pH 6.0 Urine Specific [place] <=1.005 Urine Protein Negative mg/dL (NEG-TRACE) Urine Glucose (UA) Negative mg/dL (NEG) Urine Ketones (Stick) Negative mg/dL (NEG) Urine Blood Negative (NEG) Urine Nitrite Negative (NEG) Urine Bilirubin Negative (NEG) Urine Urobilinogen Dipstick 0.2 mg/dL (0.2 mg/dL) Urine Leukocyte Esterase Trace (NEG) Urine RBC 0 /HPF (0-2) Urine WBC 1-4 /HPF (0-4) Urine Squamous Epithelial Cells Few /LPF Urine Transitional Epithelial Cells Occ /LPF Urine Bacteria 0 /HPF (0-FEW) Laboratory Tests Test 08/03/16 05:00 White Blood Count 6.0 x10^3/uL (4.0-11.0) Red Blood Count 3.86 x10^6/uL (3.50-5.40) Hemoglobin 11.5 g/dL (12.0-15.5) Hematocrit 34.0 % (36.0-47.0) Mean Corpuscular Volume 88 fL (79-100) Mean Corpuscular Hemoglobin 30 pg (25-35) Mean Corpuscular Hemoglobin Concent 34 g/dL (31-37) Red Cell Distribution Width 14.0 % (11.5-14.5) Platelet Count 231 x10^3/uL (140-400) Neutrophils (%) (Auto) 52 % (31-73) Lymphocytes (%) (Auto) 33 % (24-48) Monocytes (%) (Auto) 10 % (0-9) Eosinophils (%) (Auto) 3 % (0-3) Basophils (%) (Auto) 1 % (0-3) Neutrophils # (Auto) 3.1 x10^3uL (1.8-7.7) Lymphocytes # (Auto) 2.0 x10^3/uL (1.0-4.8) Monocytes # (Auto) 0.6 x10^3/uL (0.0-1.1) Eosinophils # (Auto) 0.2 x10^3/uL (0.0-0.7) Basophils # (Auto) 0.1 x10^3/uL (0.0-0.2) Sodium Level 144 mmol/L (136-145) Potassium Level 4.4 mmol/L (3.5-5.1) Chloride Level 110 mmol/L (98-107) Carbon Dioxide Level 26 mmol/L (21-32) Anion Gap 8 (6-14) Blood Urea Nitrogen 19 mg/dL (7-20) Creatinine 0.7 mg/dL (0.6-1.0) Estimated GFR (Cockcroft-Gault) 80.3 Glucose Level 86 mg/dL (70-99) Calcium Level 8.4 mg/dL (8.5-10.1) Microbiology 08/02/16 Urine Culture - Preliminary, Resulted 08/02/16 Urine Culture Result 1 (PETE) - Preliminary, Resulted Medications Current Medications Sodium Chloride 1,000 ml @ 100 mls/hr Q10H IV Last administered on 08/02/16 04:45; Start 08/02/16 at 04:23; Stop 08/02/16 at 14:22; Status DC Ondansetron HCl (Zofran) 4 mg 1X ONCE IV Last administered on 08/02/16 05:00 ; Start 08/02/16 at 05:00; Stop 08/02/16 at 05:02; Status DC Fentanyl Citrate (Fentanyl 2ml Vial) 25 mcg PRN Q15MIN PRN IV PAIN GREATER THAN 3/10 Last administered on 08/02/16 05:49; Start 08/02/16 at 04:30; Stop at 09:00; Status DC Ondansetron HCl (Zofran) 4 mg PRN Q8HRS PRN IV NAUSEA/VOMITING; Start 08/02/16 at 05:30; Stop 08/03/16 at 05:29; Status DC Fentanyl Citrate (Fentanyl 2ml Vial) 50 mcg PRN Q2HR PRN IV SEVERE PAIN Last administered on 08/02/16 07:32; Start 08/02/16 at 05:30; Stop 08/02/16 at 09:05 ; Status DC Sodium Chloride 1,000 ml @ 125 mls/hr Q8H IV Last administered on 08/02/16 20 :44; Start 08/02/16 at 05:17; Stop 08/03/16 at 05:16; Status DC Acetaminophen (Tylenol) 650 mg PRN Q4HRS PRN PO FEVER Last administered on 08/02 14:28; Start 08/02/16 at 05:30; Stop 08/03/16 at 05:29; Status DC Acetaminophen (Tylenol) 1,000 mg PRN Q8HRS PRN PO PAIN Last administered on 23:22; Start 08/02/16 at 09:00 Aspirin (Ecotrin) 81 mg DAILY PO Last administered on 08/02/16 10:04; Start at 09:00 Cetirizine HCl (ZyrTEC) 20 mg HS PO Last administered on 08/02/16 20:45; Start 08/02/16 at 21:00 Levothyroxine Sodium (Synthroid) 112 mcg DAILYAC PO ; Start 08/03/16 at 07:30 Naproxen (Naprosyn) 500 mg BID PO Last administered on 08/02/16 20:45; Start 08/02/16 at 09:00 Fluticasone Propionate (Flonase) 2 spray DAILY NS ; Start 08/03/16 at 09:00 Pantoprazole Sodium (Protonix) 40 mg DAILYAC PO Last administered on 08/02/16 10:03; Start 08/02/16 at 09:30 Famotidine (Pepcid) 20 mg HS PO Last administered on 08/02/16 20:45; Start at 21:00 Oxycodone HCl (Roxicodone) 5 mg PRN Q6HRS PRN PO PAIN; Start 08/02/16 at 09:00 ; Status UNV Morphine Sulfate 4 mg PRN Q2HR PRN IV PAIN; Start 08/02/16 at 09:00; Status UNV Fentanyl Citrate (Fentanyl 2ml Vial) 50 mcg PRN Q2HR PRN IV PAIN; Start at 09:00 Clindamycin Phosphate 50 ml @ 100 mls/hr 1X PREOP PRN IV PRIOR TO PROCEDURE; Start 08/03/16 at 10:00 Ketorolac Tromethamine (Toradol) 15 mg Q6HRS IV Last administered on 08/03/16 11:31; Start 08/02/16 at 18:00; Stop 08/05/16 at 00:01 Zolpidem Tartrate (Ambien) 5 mg PRN QHS PRN PO INSOMNIA Last administered on 23:22; Start 08/02/16 at 18:15 Psyllium Hydrophilic Mucilloid (Metamucil Fiber Packet) 1 pkt DAILY PO Last administered on 08/02/16 18:29; Start 08/02/16 at 18:30 Lidocaine HCl (Lidocaine Pf 2% Vial) 5 ml STK-MED ONCE .ROUTE ; Start 08/03/16 at 12:01; Stop 08/03/16 at 12:02; Status DC Propofol 20 ml @ As Directed STK-MED ONCE IV ; Start 08/03/16 at 12:01; Stop at 12:02; Status DC Dexamethasone Sodium Phosphate (Decadron) 20 mg STK-MED ONCE .ROUTE ; Start at 12:01; Stop 08/03/16 at 12:02; Status DC Ondansetron HCl (Zofran) 4 mg STK-MED ONCE .ROUTE ; Start 08/03/16 at 12:01; Stop 08/03/16 at 12:02; Status DC Famotidine (Pepcid) 20 mg STK-MED ONCE .ROUTE ; Start 08/03/16 at 12:01; Stop at 12:02; Status DC Bupivacaine HCl/ Epinephrine Bitart (Marcaine-Epi 0.25%-[id number]) 50 ml STK-MED ONCE .ROUTE ; Start 08/03/16 at 12:40; Stop 08/03/16 at 12:41; Status DC Active Scripts Active Reported Calcium (Calcium Carbonate) 600 Mg Tablet 600 Mg PO BID All Day Allergy (Cetirizine Hcl) 10 Mg Tablet 20 Mg PO HS Acetaminophen 500 Mg Tablet 1,000 Mg PO PRN Flonase Allergy Relief (Fluticasone Propionate) 9.9 Ml [place].susp 2 Sprays NS DAILY Cipro (Ciprofloxacin Hcl) 250 Mg Tablet 1 Tab PO BID Naprosyn (Naproxen) 500 Mg Tablet 500 Mg PO BID Prilosec Otc (Omeprazole Magnesium) 20 Mg Tablet.dr 1 Tab PO DAILY Multi-Day Vitamins (Multivitamin) 1 Each Tablet 1 Tab PO DAILY Zantac (Ranitidine Hcl) 150 Mg Tablet 150 Mg PO DAILY Aspir 81 (Aspirin) 81 Mg Tablet.dr 1 Tab PO DAILY Levothyroxine Sodium 112 Mcg Tablet 112 Mcg PO DAILYAC Vitals/I & O Vital Sign - Last 24 Hours 08/02/16 08/02/16 08/02/16 08/02/16 15:00 19:00 20:00 23:00 Temp 98.3 98.6 98.8 98.3 98.6 98.8 Pulse 57 57 63 Resp 18 20 20 B/P (MAP) 145/65 (91) 135/58 (83) 153/56 (88) Pulse Ox 96 95 96 O2 Delivery Room Air Room Air Room Air Room Air 08/03/16 08/03/16 08/03/16 08/03/16 03:00 07:00 08:00 11:00 Temp 97.9 97.9 98.4 97.9 97.9 98.4 Pulse 65 57 60 Resp 18 20 20 B/P (MAP) 161/81 (107) 169/69 (102) 170/78 (108) Pulse Ox 96 95 93 O2 Delivery Room Air Room Air Room Air Room Air 08/03/16 12:07 Temp 97.8 97.8 Pulse 65 Resp 12 B/P (MAP) 158/74 Pulse Ox 97 O2 Delivery Room Air LISANDRO COLIN MD August 03, 2016 13:17
[2016-08-03] MEDS ORDERED: ePHEDrine PF IN SALINE 50 MG/5 ML DISP.SYRIN IV ONE (13:51)
[2016-08-03] MEDS ORDERED: hydrALAZINE 20 MG/ML VIAL. ONE (14:02)
[2016-08-03] MEDS ORDERED: DESFLURANE 31 TO 60 MINUTES IH ONE (14:24)
--- NOTE | 2016-08-03 14:39 | PDOC4 ---
Operative Note Operative Note Date of Procedure: August 03, 2016 Preoperative Diagnosis: left knee medial meniscus tear and loose body Postoperative Diagnosis: left knee medial meniscus tear and loose body Procedures Performed: left knee arthroscopy with lateral meniscectomy, and loose body removal 20 mm Surgeon: Ad Hong MD Aircraft Parts Assembler: Nicole Clarke PA-C Anesthesia: General Estimated Blood Loss: 5 mL Specimens: none Drains: none Complications: none Tourniquet time: 26 minutes Indications for Procedure: The patient is a 81-year-old with left knee pain, and a knee that recently locked up. Exam and MRI are consistent with a lateral meniscus tear and loose body causing the locking of the knee. She recently had a corticosteroid injection, so total knee arthroplasty is contraindicated at this time. We talked about the risks and benefits of proceeding with an arthroscopic procedure. We talked about potential risks of ongoing pain, progressive arthritis, bleeding, infection, blood clots, or other potential surgical or anesthetic complications. All of the patient's questions about surgery were answered and they desired to proceed. Written consent was obtained. Description of Operation: The patient was identified in the preoperative holding area. The correct left knee was marked by me. The patient was taken to the operating room, where a general anesthetic was used. Preoperative antibiotics were given intravenously. A time-out procedure was performed. A tourniquet was placed on the upper thigh. Local anesthetic with epinephrine was injected sterilely into the knee joint. The limb was prepped sterilely and sterile drapes were applied. The limb was exsanguinated with an Esmarch bandage and the tourniquet was inflated to 350 mm Hg. Lateral and medial arthroscopy portals were established. The medial meniscus was normal and stable to probing.The medial tibiofemoral joint showed chondromalacia [place] grade I, so no chondroplasty was required.The intercondylar notch was free of loose bodies, and the ACL was intact. The lateral tibiofemoral joint showed a posterior horn lateral meniscus tear, and a meniscectomy was performed with basket forceps and the motorized shaver back to a smooth stable base.There was a 20 mm loose body in the lateral compartment which was removed through an enlarged lateral portal. A second 10 mm loose body was also removed. The lateral articular surfaces showed chondromalacia Outerbridge grade III and IV, and a shaving chondroplasty was performed removing unstable fragments of cartilage with the motorized shaver. The osteochondritis dissecans lesion was noted, and gentle shaving used to removed additional loose cartilage, back to a stable base. The patellofemoral joint showed chondromalacia Out[place]bridge grade I, so no chondroplasty was required. The suprapatellar pouch, medial and lateral gutters showed cartilaginous debris which was removed with the shaver. Copious irrigation was used to drain all meniscal and chondral fragments, and the knee was drained of fluid. Steri-Strips were applied and additional local anesthetic with epinephrine was injected. A bulky sterile dressing was applied and the tourniquet was released. Arthroscopic photos were taken throughout the procedure. Nicole Clarke PA-C, my surgical services assistant, helped throughout the procedure. She initially helped position the patient on the operating table with a thigh brace , lithotomy leg nash and tourniquet. Intraoperatively she manipulated the knee into the correct positions for arthroscopy while I ran the arthroscope in my left hand and shaver probe or other instruments in my right hand. Finally, at the end of the case, she helped remove the lithotomy leg nash, thigh brace and tourniquet and helped transfer the patient back to a reverett in good condition. Needle and sponge counts were correct and there were no apparent complications. AD HONG MD August 03, 2016 14:39
[2016-08-03] MEDS ORDERED: POLYETHYLENE GLYCOL 3350 17 GM PACKET. PO PRN (14:45)
[2016-08-03] MEDS ORDERED: oxyCODONE IR 5 MG TABLET PO PRN (14:45)
[2016-08-03] MEDS ORDERED: MORPHINE SULFATE 2 MG/ML DISP.SYRIN. IV PRN (14:45)
[2016-08-03] MEDS ORDERED: ONDANSETRON PF 4 MG/2 ML VIAL. IV PRN (14:45)
[2016-08-03] MEDS ORDERED: fentaNYL PF VIAL 100 MCG/2 ML VIAL IV PRN ×3 (14:45→15:00)
[2016-08-03] MEDS ORDERED: MORPHINE SULFATE 4 MG/ML DISP.SYRIN. IV PRN (14:45)
[2016-08-03] MEDS ORDERED: DEXTROSE 50% 25 GM / 50ML DISP.SYRIN. IV PRN (14:45)
[2016-08-03] MEDS ORDERED: PROCHLORPERAZINE 10 MG/2 ML VIAL. ONE (14:52)
[2016-08-03] MEDS ORDERED: PROCHLORPERAZINE 10 MG/2 ML VIAL. IV PRN (15:00)
[2016-08-03] MEDS ORDERED: LIDOCAINE 1% 1 ML SYRINGE. ID PRN (15:00)
[2016-08-03] MEDS ORDERED: IV RINGERS,LACTATED 1000ML 1,000 ML IV SCH (15:00)
[2016-08-03] MEDS: CLINDAMYCIN 600MG PREMIX 50 ML IV SCH (18:34)
[2016-08-03] MEDS: CETIRIZINE HCL 10 MG TABLET. PO SCH (20:53)
[2016-08-03] MEDS: FAMOTIDINE 20 MG TABLET. PO SCH (20:53)
[2016-08-03] MEDS: ZOLPIDEM 5 MG TABLET. PO PRN (22:11)
[2016-08-04] MEDS: CLINDAMYCIN 600MG PREMIX 50 ML IV SCH ×2 (00:46→08:41)
[2016-08-04] MEDS: KETOROLAC TROMETHAMINE 30 MG/ML INJ. IV SCH ×3 (00:46→11:46)
[2016-08-04 03:00] VITALS: BP 152/58
[2016-08-04] MEDS ORDERED: MAGNESIUM HYDROXIDE 2,400 MG/30 ML ORAL.SUSP. PO PRN (06:00)
[2016-08-04 07:00] VITALS: BP 152/59
[2016-08-04] MEDS ORDERED: ASPIRIN 325 MG TABLET PO SCH (08:00)
[2016-08-04] MEDS: LEVOTHYROXINE 112 MCG TABLET PO SCH (08:40)
[2016-08-04] MEDS: PSYLLIUM HUSK (SUGAR FREE) 1 PKT PACKET PO SCH (08:40)
[2016-08-04] MEDS: NAPROXEN 500 MG TABLET PO SCH (08:40)
[2016-08-04] MEDS: PANTOPRAZOLE 40 MG TABLET.DR. PO SCH (08:40)
[2016-08-04] MEDS: FLUTICASONE 50MCG/NASAL SPRAY 16GM BOTTLE. NS SCH (08:41)
[2016-08-04] MEDS ORDERED: SENNOSIDES/DOCUSATE 8.6/50MG TABLET. PO SCH (09:00)
--- NOTE | 2016-08-04 10:00 | PDOC ---
PROGRESS NOTES Subjective Subjective Doing well. States her knee is doing much better after surgery. Objective Vital Signs Vital Signs Date Time Temp Pulse Resp B/P (MAP) Pulse Ox O2 Delivery O2 Flow Rate FiO2 08/04/16 07:00 97.9 63 20 152/59 (90) 97 Room Air 97.9 08/03/16 15:30 2 Physical Exam Lying in bed with LLE elevated on pillow. Postop dressing dry and intact. She can now fully extend the left knee, without pain. Calf soft and NT with negative Harvinder's sign. Good dorsiflexion and plantarflexion with no sign of neurovascular injury. Peripheral pulses and light touch sensation intact. Labs Laboratory Tests Test 08/03/16 05:00 White Blood Count 6.0 x10^3/uL (4.0-11.0) Red Blood Count 3.86 x10^6/uL (3.50-5.40) Hemoglobin 11.5 g/dL (12.0-15.5) Hematocrit 34.0 % (36.0-47.0) Mean Corpuscular Volume 88 fL (79-100) Mean Corpuscular Hemoglobin 30 pg (25-35) Mean Corpuscular Hemoglobin Concent 34 g/dL (31-37) Red Cell Distribution Width 14.0 % (11.5-14.5) Platelet Count 231 x10^3/uL (140-400) Neutrophils (%) (Auto) 52 % (31-73) Lymphocytes (%) (Auto) 33 % (24-48) Monocytes (%) (Auto) 10 % (0-9) Eosinophils (%) (Auto) 3 % (0-3) Basophils (%) (Auto) 1 % (0-3) Neutrophils # (Auto) 3.1 x10^3uL (1.8-7.7) Lymphocytes # (Auto) 2.0 x10^3/uL (1.0-4.8) Monocytes # (Auto) 0.6 x10^3/uL (0.0-1.1) Eosinophils # (Auto) 0.2 x10^3/uL (0.0-0.7) Basophils # (Auto) 0.1 x10^3/uL (0.0-0.2) Sodium Level 144 mmol/L (136-145) Potassium Level 4.4 mmol/L (3.5-5.1) Chloride Level 110 mmol/L (98-107) Carbon Dioxide Level 26 mmol/L (21-32) Anion Gap 8 (6-14) Blood Urea Nitrogen 19 mg/dL (7-20) Creatinine 0.7 mg/dL (0.6-1.0) Estimated GFR (Cockcroft-Gault) 80.3 Glucose Level 86 mg/dL (70-99) Calcium Level 8.4 mg/dL (8.5-10.1) Assessment Assessment POD #1 left knee arthroscopy with lateral meniscectomy and loose body removal Problems: Plan Plan of Care Toe-touch weightbearing with walker for 7 days. PT/OT. From ortho standpoint, she may be discharged to home this afternoon after therapy. She states her sister is going to stay with her for a couple of days at home. Continue aspirin 325mg daily for DVT ppx. Home exercises for quadriceps strengthening were discussed. Followup with [facility] in 10-14 days. ROBYN LA August 04, 2016 09:59
[2016-08-04 11:00] VITALS: BP 151/56
[2016-08-04] MEDS ORDERED: BISACODYL 10 MG SUPP.RECT. PR PRN (16:00)
== END 2016-08-04 13:30 | disposition home health service (06) | DRG 488 ==
LOC: ER 03:50 → 4 NORTH 05:23
PROVIDERS: ADMIT Internal Medicine; ATTEND Internal Medicine
PROC: 0SCD4ZZ Extirpation of Matter from Left Knee Joint, Percutaneous Endoscopic Approach (ICD-10-PCS; 2016-08-03)
PROC: 0SBD4ZZ Excision of Left Knee Joint, Percutaneous Endoscopic Approach (ICD-10-PCS; principal; 2016-08-03 12:45)
DX: S83.242A Other tear of medial meniscus, current injury, left knee, initial encounter (principal); R53.2 Functional quadriplegia; D62 Acute posthemorrhagic anemia; M17.12 Unilateral primary osteoarthritis, left knee; E03.9 Hypothyroidism, unspecified; E86.0 Dehydration; K21.9 Gastro-esophageal reflux disease without esophagitis; N18.3 Chronic kidney disease, stage 3 (moderate); K59.00 Constipation, unspecified; M93.262 Osteochondritis dissecans, left knee; X58.XXXA Exposure to other specified factors, initial encounter; D50.9 Iron deficiency anemia, unspecified; M22.42 Chondromalacia patellae, left knee; Z88.0 Allergy status to penicillin; Z88.5 Allergy status to narcotic agent; Z88.2 Allergy status to sulfonamides; Z88.8 Allergy status to other drugs, medicaments and biological substances; Z91.040 Latex allergy status; Z79.1 Long term (current) use of non-steroidal anti-inflammatories (NSAID); Z79.899 Other long term (current) drug therapy; Z79.82 Long term (current) use of aspirin; Z79.2 Long term (current) use of antibiotics; Z90.49 Acquired absence of other specified parts of digestive tract; Z90.710 Acquired absence of both cervix and uterus; Y93.89 Activity, other specified; Y92.89 Other specified places as the place of occurrence of the external cause
CPT/HCPCS: 36415; 73562; 80048; 80053; 81001; 85027; 87086; 96361; 96374; 96375; 96376; J0171; J0360; J0780; J1100; J1885; J2405; J2704; J3010; J3490; J7030; S0028; 99285-25

== ENCOUNTER → 2016-09-06 | Outpatient (CLI) | payer MEDICARE ==
[~2016-09-06] MED LIST changes: +ACET500T68 PO; +CALC600T4 PO; +CETI-281 PO; +CIPR250T30 PO; +DIPH50CA PO; +FERR-26 PO; +FLUT9.9S NS; +GARL10002 PO; -LANS30CA17 PO; +LANS30CA66 PO; +MELA3TAB2 PO; +NAPR-677 PO; +NAPR500T PO; -NAPR550T3 PO; +OMEP20TA63 PO
[2016-09-06 09:13] LABS: BASO # 0.1 x10^3/uL (0.0-0.2); BASO % 1 % (0-3); EOS % 3 % (0-3); HEMATOCRIT 36.9 % (36.0-47.0); HEMOGLOBIN 12.4 g/dL (12.0-15.5); LYMPH # 1.8 x10^3/uL (1.0-4.8); LYMPH % 27 % (24-48); MEAN CORPUSCULAR HEMOGLOBIN 30 pg (25-35); MEAN CORPUSCULAR HGB CONC 34 g/dL (31-37); MEAN CORPUSCULAR VOLUME 88 fL (79-100); MONO % 10 % (0-9); NEUT % 60 % (31-73); PLATELET COUNT 270 x10^3/uL (140-400); RED BLOOD COUNT 4.17 x10^6/uL (3.50-5.40); WHITE BLOOD COUNT 6.9 x10^3/uL (4.0-11.0)
[2016-09-06 09:22] LABS: INR 1.1 (0.8-1.1); PROTHROMBIN TIME PATIENT 13.3 SEC (11.7-14.0)
[2016-09-06 09:29] LABS: ALBUMIN 3.8 g/dL (3.4-5.0); CALCIUM 9.1 mg/dL (8.5-10.1); CREATININE 0.8 mg/dL (0.6-1.0); GFR 68.8; POTASSIUM 4.3 mmol/L (3.5-5.1)
[2016-09-06 10:41] LABS: BILIRUBIN,URINE NEGATIVE (NEG); GLUCOSE,URINE NEGATIVE (NEG); NITRITE,URINE NEGATIVE (NEG); PROTEIN,URINE NEGATIVE (NEG-TRACE); UROBILINOGEN,URINE 0.2 mg/dL (0.2 mg/dL)
[2016-09-06 11:07] LABS: SQUAMOUS EPITHELIAL CELL,UR MOD /LPF
[2016-09-06 11:08] LABS: BACTERIA,URINE 0 /HPF (0-FEW); RBC,URINE 0 /HPF (0-2); WBC,URINE 0 /HPF (0-4)
--- NOTE | 2016-09-06 13:01 | EKG ---
[facility] [address] [place] [address] Test Date: 2016-09-06 Test Time: 12:50:54 Pat Name: YENY KINNEY Department: Room: Gender: F Family Life Educator: KALYN : 1935 Requested By: AD ALCANTARA Order Number: [id number] Reading MD: Elias Boyer Measurements Intervals [place] Rate: 66 P: 37 NE: 170 QRS: 27 QRSD: 78 T: 22 QT: 374 QTc: 394 Interpretive Statements SINUS RHYTHM Electronically Signed On 09-10-2016 13:06:37 CDT by Elias Boyer
--- NOTE | 2016-09-06 17:15 | RAD ---
Chest, 2 views, 09/06/2016: History: Preop evaluation for knee surgery. The heart size is normal. There is calcific plaquing of the aorta. There is a calcified granuloma in the right middle lobe. No acute infiltrates are seen. There is no evidence of pleural fluid. Mild scattered spurs are present in the spine. IMPRESSION: No acute cardiopulmonary abnormality is detected.
== END | disposition home or self-care (01) ==
LOC: SURGPAT 13:12
PROVIDERS: ATTEND Orthopaedic Surgery
DX: M17.12 Unilateral primary osteoarthritis, left knee (principal)
CPT/HCPCS: 36415; 71020; 80048; 81001; 82040; 85027; 85610; 85651; 85730; 87641; 93005

== ENCOUNTER 2016-09-28 05:34 | Inpatient (IN) | payer MEDICARE ==
--- NOTE | 2016-09-27 16:41 | PDOC1 ---
History and Physical Date of Admission Date of Admission DATE: 09/28/16 Identification/Chief Complaint Chief Complaint left knee osteoarthritis pain Problems: Source Source: Chart review History of Present Illness History of Present Illness Desire is an 81 year old female with left knee pain. She had left knee arthroscopy with lateral meniscectomy and loose body removal on 08/03/16. Since her surgery, the patient has not improved at all. She states that she is having trouble putting weight on her left leg, as her valgus alignment is painful. Occasionally, she has numbness down her distal left leg, and she is unsure if it is from her sciatica. She states that she got a new brace which has improved her knee a little. She states that she is barely able to do anything in physical therapy as everything is too painful. Past Medical History Cardiovascular: No pertinent hx Pulmonary: No pertinent hx GI: Constipation Musculoskeletal: low back pain Rheumatologic: No pertinent hx Infectious disease: No pertinent hx Past Surgical History Past Surgical History: Cholecystectomy, Tonsillectomy, Hysterectomy, Other ( right thyroidectomy, bladder suspension) Family History Family History: Heart Disease Social History Smoke: No (1985) ALCOHOL: none Drugs: None Current Medications Current Medications Current Medications Ketorolac Tromethamine 30 mg/Ropivacaine 60 ml/Epinephrine HCl 0.5 mg/Sodium Chloride 99.5 ml @ 99.5 mls/hr 1X PERIOP ONCE INT ART ; Start 09/28/16 at 06: 00; Stop 09/28/16 at 06:59 Ondansetron HCl (Zofran) 4 mg PRN Q6HRS PRN IV NAUSEA/VOMITING; Start 09/28/16 at 07:00; Stop 09/29/16 at 06:59 Fentanyl Citrate (Fentanyl 2ml Vial) 25 mcg PRN Q5MIN PRN IV MILD PAIN; Start 09/28/16 at 07:00; Stop 09/29/16 at 06:59 Fentanyl Citrate (Fentanyl 2ml Vial) 50 mcg PRN Q5MIN PRN IV MODERATE PAIN; Start 09/28/16 at 07:00; Stop 09/29/16 at 06:59 Ringer's Solution 1,000 ml @ 30 mls/hr Q24H IV ; Start 09/28/16 at 07:00; Stop 09/28/16 at 18:59 Lidocaine HCl 2 ml PRN 1X PRN ID PRIOR TO IV START; Start 09/28/16 at 07:00; Stop 09/29/16 at 06:59 Prochlorperazine Edisylate (Compazine) 5 mg PACU PRN PRN IV NAUSEA, MRX1; Start 09/28/16 at 07:00; Stop 09/29/16 at 06:59 Active Scripts Active Reported Ferrous Sulfate 325 Mg Tablet 325 Mg PO DAILY Garlic 1,000 Mg Capsule 1,000 Mg PO DAILY Diphenhydramine Hcl 50 Mg Capsule 50 Mg PO BID Melatonin 3 Mg Tablet 5 Tab PO QHS Calcium (Calcium Carbonate) 600 Mg Tablet 600 Mg PO BID All Day Allergy (Cetirizine Hcl) 10 Mg Tablet 20 Mg PO HS Acetaminophen 500 Mg Tablet 1,000 Mg PO PRN Flonase Allergy Relief (Fluticasone Propionate) 9.9 Ml [place].susp 2 Sprays NS DAILY Naprosyn (Naproxen) 500 Mg Tablet 500 Mg PO BID Prilosec Otc (Omeprazole Magnesium) 20 Mg Tablet.dr 1 Tab PO DAILY Multi-Day Vitamins (Multivitamin) 1 Each Tablet 1 Tab PO DAILY Zantac (Ranitidine Hcl) 150 Mg Tablet 150 Mg PO DAILY Aspir 81 (Aspirin) 81 Mg Tablet.dr 1 Tab PO DAILY Levothyroxine Sodium 112 Mcg Tablet 112 Mcg PO DAILYAC Allergies Allergies: Coded Allergies: atropine (Unverified Allergy, Intermediate, 01/08/16) carbamazepine (Verified Allergy, Intermediate, 01/08/16) codeine (Verified Allergy, Intermediate, 01/08/16) hydrocodone (Unverified Allergy, Intermediate, 01/08/16) hyoscyamine (Unverified Allergy, Intermediate, 01/08/16) latex (Verified Allergy, Intermediate, Rash, 01/08/16) penicillin (Verified Allergy, Intermediate, 01/08/16) phenobarbital (Unverified Allergy, Intermediate, 01/08/16) scopolamine (Unverified Allergy, Intermediate, 01/08/16) Fuwctwk-Ryf-Jhg Reductase Inhibitor (Verified Adverse Reaction, Intermediate, 09/06/16) SEVERE MUSCLE ACHING Sulfa (Sulfonamide Antibiotics) (Verified Adverse Reaction, Intermediate, RASH, 08/02/16) adhesive (Verified Adverse Reaction, Intermediate, Unknown, 09/06/16) methocarbamol (Verified Adverse Reaction, Intermediate, Nausea and Vomiting, 09/06/16) tramadol (Verified Adverse Reaction, Mild, Nausea, 08/02/16) Physical Exam General: Alert, Oriented X3, Cooperative, No acute distress HEENT: Atraumatic, EOMI Lungs: Normal air movement Heart: RRR Abdomen: Soft Extremities: No clubbing, No cyanosis, No edema, Normal pulses, Other ( The portal incisions are dry and intact, without drainage or erythema. Valgus alignment. Trace effusion. The knee shows active range of motion from 5-95 degrees. There is mild pain felt at the extremes of motion. The calf is soft and nontender, with a negative Harvinder's sign. There is mild laxity medially with valgus stress testing. Good dorsiflexion and plantarflexion of foot. No evidence of infection, DVT, or neurovascular injury. ) Skin: No rashes, No breakdown, No significant lesion Neuro: Normal speech, Sensation intact Psych/Mental Status: Mental status NL, Mood NL VTE Prophylaxis Ordered VTE Prophylaxis Devices: Yes VTE Pharmacological Prophylaxi: Yes Assessment/Plan Assessment/Plan Left knee osteoarthritis. Her left knee arthroscopy with lateral meniscectomy and loose body removal on did not improve her pain at all. Since she had a cortisone injection on 06.10.16, she will have to wait a few more weeks to have a total knee arthroplasty. We discussed the potential risks of infection, neurovascular injury, bleeding, blood clots, need for revision surgery, or other potential surgical or anesthetic complications. She agrees with total knee arthroplasty and we will schedule that at the first mutually convenient date, 12 weeks or more after the last cortisone injection. She can discontinue physical therapy as she is unable to complete the exercises. ROBYN LA Sep 27, 2016 16:41
[~2016-09-28] VITALS: Ht 154.9 cm; Wt 78.9 kg
[2016-09-28] VITALS (8 sets, daily range): BP systolic 136–164; BP diastolic 61–71
[2016-09-28] MEDS ORDERED: ACETAMINOPHEN 500 MG TABLET PO PRN (06:00)
[2016-09-28] MEDS ORDERED: TRANEXAMIC ACID 1,000 MG in IV NS 50ML -- 1ST BAG INJ ONE (06:00)
[2016-09-28] MEDS ORDERED: CLINDAMYCIN 600MG PREMIX 50 ML IV PRN (06:00)
[2016-09-28] MEDS ORDERED: VANCOMYCIN 1 GM VIAL. ONE (06:48)
[2016-09-28] MEDS ORDERED: TOBRAMYCIN POWDER 1.2 GM VIAL. ONE (06:48)
[2016-09-28] MEDS ORDERED: IV RINGERS,LACTATED 1000ML 1,000 ML IV SCH (07:00)
[2016-09-28] MEDS ORDERED: ONDANSETRON PF 4 MG/2 ML VIAL. IV PRN (07:00)
[2016-09-28] MEDS ORDERED: LIDOCAINE 1% 1 ML SYRINGE. ID PRN (07:00)
[2016-09-28] MEDS ORDERED: PROCHLORPERAZINE 10 MG/2 ML VIAL. IV PRN ×2 (07:00→12:30)
[2016-09-28] MEDS ORDERED: fentaNYL PF VIAL 100 MCG/2 ML VIAL IV PRN ×3 (07:00→12:30)
[2016-09-28] MEDS ORDERED: TRANEXAMIC ACID 1,000 MG in IV NS 50ML -- 2ND BAG INJ ONE (08:00)
[2016-09-28] MEDS ORDERED: SCOPOLAMINE 1.5MG PATCH. TD ONE (08:38)
[2016-09-28] MEDS ORDERED: SEVOFLURANE > 120 MINUTES. IH ONE (10:12)
[2016-09-28] MEDS ORDERED: fentaNYL PF VIAL 250 MCG/5 ML VIAL ONE (10:12)
[2016-09-28] MEDS ORDERED: DEXAMETHASONE SOD PHOS 20 MG/5 ML VIAL. ONE (10:12)
[2016-09-28] MEDS ORDERED: LIDOCAINE 2% PF Vial for OR 5 ML VIAL. ONE (10:12)
[2016-09-28] MEDS ORDERED: ONDANSETRON PF 4 MG/2 ML VIAL. ONE (10:12)
[2016-09-28] MEDS ORDERED: PROPOFOL 20 ML IV ONE (10:12)
[2016-09-28] MEDS ORDERED: LABETALOL 20 MG/4 ML DISP.SYRIN. ONE (10:55)
--- NOTE | 2016-09-28 12:13 | PDOC4 ---
Operative Note Operative Note Date of Procedure: September 28, 2016 Pre-Op Diagnosis: Osteoarthritis left knee Post-Op Diagnosis: Osteoarthritis left knee Procedure: left total knee arthroplasty Surgeon: Ad Hong MD Gear Lapper: Nicole Clarke PA-C Anesthesia: General EBL: 100 mL Specimens Obtained: left knee bone and soft tissue Complications: none Implant Company: [employer] Drains: Hemovac plus pain catheter Tourniquet time: 60 Minutes Tourniquet Pressure: 350 mm Hg Indications for Procedure: Arthritis pain unrelieved by nonoperative management. Findings: Severe osteoarthritis with bone on bone contact laterally Implants used: Size 2 left bicruciate stabilized Journey II BCS Oxinium femoral component, size 3 left Journey nonporous tibial baseplate, size 3-4 10 mm left Journey II BCS XLPE articular insert, 23 mm Journey biconvex inset patellar component Procedure in Detail: The patient was identified in the preoperative holding area, and the correct left lower extremity was marked by me. The patient was taken to the operating room where the patient was anesthetized by the Department of Anesthesia. Preoperative antibiotics were given intravenously. Tranexamic acid 1 g was given intravenously for intraoperative hemostasis. A "time-out" procedure was performed. The patient was positioned supine on the operative table with a tourniquet on the upper left thigh. The left lower limb was thoroughly prepped and draped in sterile fashion. An impervious stockinet and adhesive drape were used such that the skin was entirely covered. An Kimble leg nash was used. The operating team wore personal exhaust-ventilated hoods. The tourniquet was inflated to 350 Hg. A midline skin incision was made with a scalpel using the patella and tibial tubercle as landmarks. Electrocautery was used for hemostasis. My medicine assistant used rake retractors. A medial parapatellar arthrotomy incision was used with extension into the distal quadriceps tendon. The patella was retracted laterally and Hohmann retractors were now used by my medicine assistant. Excess synovium, the menisci, and the cruciate ligaments were resected sharply. The patella was assessed and excess synovium and osteophytes around the patellar articulation were removed. The patella was measured with a caliper, cut freehand with a saw using caliper measurements, sized, and then drilled for an oval three-pegged patella component. Periarticular injection was used in the suprapatellar pouch and distal quadriceps muscle. Whitesides's line was assessed on the femur. An intra-medullary 5 degree cutting guide was pinned to the femur, and a distal femoral cut was made with an oscillating saw. An additional 4 mm resection was used due to the deep femoral sulcus, and deficient femoral condyle.My medicine assistant held Hohmann retractors and an [employer] retractor to protect the medial and lateral collateral ligaments, the patellar tendon, the skin and the other soft tissues. An anterior referencing guide was applied with external rotation of 4 to match Whitesides line. A 5-in-1 Journey II cutting guide was then applied and pinned to the femur. The posterior, anterior, and all chamfer cuts were made with the oscillating saw. An extramedullary guide was pinned to the tibia and rotational alignment and the planned resection thickness assessed. An external alignment neetu was used to verify the planned cut in the varus-valgus plane and regarding posterior slope referencing the tibial tubercle, the tibial shaft, the ankle joint, and the second metatarsal. The upper tibia was cut made with an oscillating saw. My medicine assistant held Hohmann retractors and a posterior cruciate ligament retractor to protect the medial and lateral collateral ligaments, the patellar tendon, the skin, the peroneal nerve and the other soft tissues. The upper tibia was sized with a trial baseplate. The posterior compartment was cleared of osteophytes and loose bodies, and posterior capsule released. Nivia-articular injection was used in the posterior compartment. The box cut for a posterior stabilized component was made. A preliminary reduction was performed with a trial femur, trial tibial baseplate and trial polyethylene. Soft-tissue balancing was now performed, and extension and rotation of the alignments was checked using a guide neetu in the tibial trial and a guide pin in the femur. No additional releases were required. The stability was assessed using different thicknesses of tibial articular surface to find satisfactory stability and good range of motion. The rotation of the tibial component was marked on the upper tibia. Final trial reduction was now performed verifying patella tracking and tibiofemoral stability and alignment. The tibia preparation was completed with a drill, saw, and fin punch at the previously noted rotation. The final implants were verified and opened. Outer gloves were changed by the operating team. The bone cuts were washed thoroughly with the [employer] InterPulse device and dried. Two packages of Palacos bone cement were mixed in powdered form with 1 gm of Vancomycin and 1.2 g tobramycin, then vacuum-mixed with the monomer, and placed into a cement gun. The cut surfaces of the bone were thoroughly dried with Escamilla-tip suction and with laparotomy sponges for cement interdigitation. The final components were cemented into place. The knee was kept at full extension while the cement hardened, and excess cement was removed. Tranexamic acid 1 g was redosed intravenously for additional intraoperative hemostasis. A final periarticular injection was used for pain relief. The tourniquet was released, and electrocautery was used for hemostasis. A final check of [id number] and stability was made, and the polyethylene implant final size was chosen. The polyethylene implant was secured to the tibial baseplate, and the knee was reduced a final time. Thorough irrigation was used. Hemovac and pain catheter were used.The arthrotomy was closed with interrupted [id number] #1 PDS suture. The arthrotomy incision was then run with #1 STRATAFIX Symmetric PDS Plus Knotless suture. The subcutaneous tissues were closed with #2-0 Vicryl by my medicine assistant. The skin was approximated with rhea by my medicine assistant. A bulky sterile gauze dressing was applied. Needle and sponge counts were correct. AD HONG MD Sep 28, 2016 12:12
[2016-09-28] MEDS: IV DEXTROSE 5 %-0.45 % NACL 1,000 ML IV SCH ×2 (12:28→22:28)
[2016-09-28] MEDS ORDERED: 0.9 % SODIUM CHLORIDE 10 ML DISP.SYRIN. IV PRN (12:30)
[2016-09-28] MEDS ORDERED: MORPHINE SULFATE 10 MG/ML VIAL. IV PRN (12:30)
[2016-09-28] MEDS ORDERED: CALCIUM CARBONATE 500 MG TAB.CHEW PO PRN (12:30)
[2016-09-28] MEDS ORDERED: DEXTROSE 50% 25 GM / 50ML DISP.SYRIN. IV PRN (12:30)
[2016-09-28] MEDS ORDERED: MORPHINE SULFATE 2 MG/ML DISP.SYRIN. IV PRN (12:30)
[2016-09-28] MEDS ORDERED: PROCHLORPERAZINE 5 MG TABLET. PO PRN (12:30)
[2016-09-28] MEDS ORDERED: MORPHINE SULFATE 4 MG/ML DISP.SYRIN. IV PRN ×2 (12:30)
[2016-09-28] MEDS ORDERED: METOCLOPRAMIDE HCL 10 MG/2 ML VIAL. IV PRN (12:30)
[2016-09-28] MEDS ORDERED: ACETAMINOPHEN 325 MG TABLET. PO PRN (12:30)
[2016-09-28] MEDS ORDERED: diphenhydrAMINE 50 MG/ML VIAL IV PRN (12:30)
[2016-09-28] MEDS ORDERED: ZOLPIDEM 5 MG TABLET. PO PRN (12:30)
[2016-09-28] MEDS: fentaNYL PF VIAL 100 MCG/2 ML VIAL IV PRN ×4 (12:52→14:00)
--- NOTE | 2016-09-28 13:04 | RAD ---
Left knee, 2 views, 09/28/2016: History: Postop evaluation A total knee prosthesis has been placed in satisfactory position. A surgical drain and surgical clips overlie the operative site anteriorly. There is no evidence of a retained surgical instrument, needle or radiopaque sponge on these 2 views. IMPRESSION: No significant postoperative abnormality is detected.
--- NOTE | 2016-09-28 13:55 | EKG ---
[facility] [address] [place] [address] Test Date: 2016-09-28 Test Time: 13:51:46 Pat Name: YENY KINNEY Department: Room: [place] [address] Gender: F Aids Social Worker: KALYN : 1935 Requested By: NICK ROME Order Number: [id number] Reading MD: Elias Boyer Measurements Intervals Sontag Rate: 60 P: 41 DC: 188 QRS: 38 QRSD: 82 T: 21 QT: 424 QTc: 424 Interpretive Statements SINUS RHYTHM Electronically Signed On 09-30-2016 8:50:05 CDT by Elias Boyer
[2016-09-28] MEDS ORDERED: hydrALAZINE 20 MG/ML VIAL. IVP PRN ×2 (14:00→15:00)
--- NOTE | 2016-09-28 14:58 | PDOC2 ---
DIANA ESPARZA REED REPAIRER 09/28/16 1458: CARDIAC CONSULT DATE OF CONSULT Date of Consult DATE: 09/28/16 TIME: 14:39 REASON FOR CONSULT Reason for Consult: New onset flutter REFERRING PHYSICIAN Referring Physician: Gely SOURCE Source: Chart review, Patient HISTORY OF PRESENT ILLNESS HISTORY OF PRESENT ILLNESS This is a 81 yo female admitted for elective LTKA. Post op in PACU she developed atrial flutter in which at that time she was having nausea, dry heaving, having surgical pain. Her BP was also elevated. Upon review of her tele strip from PACU possible atrial flutter but brief and rate controlled. and HR of 50s. Pt does not have hx of arrhythmias. No CAD, CVA in the past. Prior to surgery no complains of chest pain, palpitations, dizziness, or SOA. PAST MEDICAL HISTORY Cardiovascular: HTN, Hyperlipidemia GI: Constipation, Diverticulosis, GERD, Other (hernia) Heme/Onc: Anemia NOS Musculoskeletal: Osteoarthritis ENT: Allergic Rhinitis Renal/: UTI Endocrine: Hypothyroidism PAST SURGICAL HISTORY Past Surgical History: Cholecystectomy, Total knee replacement (left ), Tonsillectomy, Hysterectomy, Other (thyroidectomy) FAMILY HISTORY Family History: Heart Disease SOCIAL HISTORY Smoke: No (quit) ALCOHOL: none Drugs: None Lives: Alone CURRENT MEDICATIONS CURRENT MEDICATIONS Current Medications Medications (Trade) Dose Ordered Sig/Chloe Route PRN Reason Start Time Stop Time Status Last Admin Dose Admin Ketorolac Tromethamine 30 mg/Ropivacaine 60 ml/Epinephrine HCl 0.5 mg/Sodium Chloride 99.5 ml @ 99.5 mls/hr 1X PERIOP ONCE INT ART 09/28/16 06:00 09/28/16 06:59 DC 09/28/16 11:06 Ondansetron HCl (Zofran) 4 mg PRN Q6HRS PRN IV NAUSEA/VOMITING 09/28/16 07:00 09/29/16 06:59 09/28/16 14:00 Fentanyl Citrate (Fentanyl 2ml Vial) 50 mcg PRN Q5MIN PRN IV MODERATE PAIN 09/28/16 07:00 09/29/16 06:59 09/28/16 14:00 Ringer's Solution 1,000 ml @ 30 mls/hr Q24H IV 09/28/16 07:00 09/28/16 18:59 09/28/16 08:34 Prochlorperazine Edisylate (Compazine) 5 mg PACU PRN PRN IV NAUSEA, MRX1 09/28/16 07:00 09/29/16 06:59 09/28/16 12:53 Acetaminophen (Tylenol) 1,000 mg 1X PREOP PRN PO PRIOR TO PROCEDURE 09/28/16 06:00 09/28/16 18:00 09/28/16 08:32 Clindamycin Phosphate 50 ml @ 100 mls/hr 1X PREOP PRN IV PRIOR TO PROCEDURE 09/28/16 06:00 09/28/16 18:00 09/28/16 10:24 Vancomycin HCl 1 gm STK-MED ONCE .ROUTE 09/28/16 06:48 09/28/16 06:49 DC 09/28/16 11:07 Tobramycin Sulfate 1.2 gm STK-MED ONCE .ROUTE 09/28/16 06:48 09/28/16 06:49 DC 09/28/16 11:07 Hydralazine HCl (Apresoline) 10 mg 1X PACU PRN IVP HYPERTENSION, SEE COMMENTS 09/28/16 14:00 09/28/16 14:05 ALLERGIES ALLERGIES: Coded Allergies: atropine (Unverified Allergy, Intermediate, 09/28/16) carbamazepine (Verified Allergy, Intermediate, 09/28/16) hyoscyamine (Unverified Allergy, Intermediate, 01/08/16) latex (Verified Allergy, Intermediate, Rash, 01/08/16) penicillin (Verified Allergy, Intermediate, 01/08/16) phenobarbital (Unverified Allergy, Intermediate, 01/08/16) scopolamine (Unverified Allergy, Intermediate, 01/08/16) codeine (Verified Adverse Reaction, Severe, Nausea, 09/28/16) hydrocodone (Unverified Adverse Reaction, Severe, Nausea, 09/28/16) Sclzvhd-Ums-Ssc Reductase Inhibitor (Verified Adverse Reaction, Intermediate, 09/06/16) SEVERE MUSCLE ACHING Sulfa (Sulfonamide Antibiotics) (Verified Adverse Reaction, Intermediate, RASH, 08/02/16) adhesive (Verified Adverse Reaction, Intermediate, Unknown, 09/06/16) methocarbamol (Verified Adverse Reaction, Intermediate, Nausea and Vomiting, 09/06/16) tramadol (Verified Adverse Reaction, Intermediate, Nausea, 09/28/16) ROS Review of System limited, pt currently nauseated and dry heaving PHYSICAL EXAM General: Alert, Oriented X3, Cooperative, No acute distress HEENT: Atraumatic, Mucous membr. moist/pink Lungs: Clear to auscultation, Normal air movement Heart: Regular rate (SR/SB), Normal S1, Normal S2 Abdomen: Soft, No tenderness Extremities: No cyanosis, No edema Skin: No breakdown, No significant lesion Neuro: Normal speech, Sensation intact MUSCULOSKELETAL: Other (surgical LLE wrapped with CHRIS wrap and hemovac in place ) VITALS VITALS Vital Signs Date Time Temp Pulse Resp B/P (MAP) Pulse Ox O2 Delivery O2 Flow Rate FiO2 09/28/16 14:05 64 184/60 09/28/16 13:49 16 100 Room Air 09/28/16 13:14 97.7 97.7 09/28/16 13:05 2.0 ASSESSMENT/PLAN ASSESSMENT/PLAN 1. Arrhythmia: presently SB in the 50s. Possible coarse atrial flutter, suspecting catecholaminergic response. 2. HTN: labile with associated pain and nausea. 3. Hypothyroidism 4. S/P LTKA Recommendations 1. Presently on ASA for VTE prophylaxis. 2. Hydralazine IV PRN, control nausea and pain 3. BMP, Mg. Will monitor for any ectopies overnight and if any recurrence then will consider addition of BB 4. If rhythm remains to be in question then event monitor would be an option as an outpt 5. TSH Problems: DAVIDSON FLORENTINO MD 09/28/16 2928: CARDIAC CONSULT ALLERGIES ALLERGIES: Coded Allergies: atropine (Unverified Allergy, Intermediate, 09/28/16) carbamazepine (Verified Allergy, Intermediate, 09/28/16) hyoscyamine (Unverified Allergy, Intermediate, 01/08/16) latex (Verified Allergy, Intermediate, Rash, 01/08/16) penicillin (Verified Allergy, Intermediate, 01/08/16) phenobarbital (Unverified Allergy, Intermediate, 01/08/16) scopolamine (Unverified Allergy, Intermediate, 01/08/16) codeine (Verified Adverse Reaction, Severe, Nausea, 09/28/16) hydrocodone (Unverified Adverse Reaction, Severe, Nausea, 09/28/16) Irueedh-Zbo-Aol Reductase Inhibitor (Verified Adverse Reaction, Intermediate, 09/06/16) SEVERE MUSCLE ACHING Sulfa (Sulfonamide Antibiotics) (Verified Adverse Reaction, Intermediate, RASH, 08/02/16) adhesive (Verified Adverse Reaction, Intermediate, Unknown, 09/06/16) methocarbamol (Verified Adverse Reaction, Intermediate, Nausea and Vomiting, 09/06/16) tramadol (Verified Adverse Reaction, Intermediate, Nausea, 09/28/16) ASSESSMENT/PLAN ASSESSMENT/PLAN Patient seen and examined. Agree with above nurse practitioner note. 81-year-old woman presenting with possible arrhythmia in the setting of postoperative pain. Normal cardiac exam. Conservative management at this time with monitoring on telemetry. If arrhythmia Isaias overnight and could consider initiation of medications and/or anticoagulation. Thank you for this consultation. Will follow along closely. Problems: DIANA ESPARZA APRN Sep 28, 2016 14:58 DAVIDSON FLORENTINO MD Sep 28, 2016 17:48
[2016-09-28] MEDS: SENNOSIDES/DOCUSATE 8.6/50MG TABLET. PO SCH (15:00)
[2016-09-28] MEDS: FLUTICASONE 50MCG/NASAL SPRAY 16GM BOTTLE. NS SCH (15:00)
[2016-09-28] MEDS: PANTOPRAZOLE 40 MG TABLET.DR. PO SCH (16:30)
[2016-09-28] MEDS: CLINDAMYCIN 600MG PREMIX 50 ML IV SCH ×2 (16:46→21:19)
[2016-09-28] MEDS: FERROUS SULFATE 325 MG TABLET. PO SCH (17:00)
[2016-09-28 17:07] LABS: CALCIUM 8.9 mg/dL (8.5-10.1); CREATININE 0.7 mg/dL (0.6-1.0); GFR 80.3; MAGNESIUM 1.9 mg/dL (1.8-2.4); POTASSIUM 4.3 mmol/L (3.5-5.1)
[2016-09-28] MEDS: CALCIUM CARBONATE 500 MG TABLET PO SCH (18:00)
[2016-09-28] MEDS ORDERED: MELATONIN PO SCH (21:00)
[2016-09-28] MEDS: NAPROXEN 500 MG TABLET PO SCH (21:19)
[2016-09-28] MEDS: CETIRIZINE HCL 10 MG TABLET. PO SCH (21:19)
[2016-09-28] MEDS: oxyCODONE/APAP 5/325 1 TAB TABLET PO PRN (21:19)
[2016-09-28] MEDS: ASPIRIN ENTERIC COATED 325 MG TABLET.DR. PO SCH (21:19)
[2016-09-29 03:35] VITALS: BP 154/70
[2016-09-29] MEDS: CLINDAMYCIN 600MG PREMIX 50 ML IV SCH (03:51)
--- NOTE | 2016-09-29 05:33 | ACF ---
Admission Forms Criteria PAIN MANAGEMENT GR Clinical Indications for Admission to Inpatient Care (Place 'X' for any and all applicable criteria): Hospital admission is needed for appropriate care of the patient because of 1 or more of the following are present (1)(2)(3)(4)(5): [ ]I. Severe pain requiring acute inpatient management as indicated by 1 or more of the following (2)(5)(10): [ ]a) Continuous or frequent (eg, every 2 to 4 hours) parenteral analgesics required [A] [ ]b) Necessity (ie, alternative approaches not effective) for analgesic regimen that can only be performed or initiated in inpatient setting [X]II. Pain causing debilitation to the point of inability to function or be supported at any other level of care [ ]III. Severe side effects from pain medications as indicated by ANY ONE of the following (12)(13)(14)(15): [ ]a) Uncontrollable seizures [ ]b) Cardiac arrhythmias of immediate concern [ ]c) Dehydration that is severe or persistent [ ]d) Vomiting that is severe or persistent [ ]e) Altered mental status that is severe or persistent [ ]f) Obstipation with inadequate GI function to maintain nutrition The original [employer] content created by [employer] has been revised. The portions of the content which have been revised are identified through the use of italic text or in bold, and [employer] [facility] has neither reviewed nor approved the modified material. All other unmodified content is copyright [employer]. Please see references footnoted in the original [employer] edition 2016 Admission Criteria Met?: Yes ALST ASENCIO Sep 29, 2016 05:33
[2016-09-29] MEDS ORDERED: MAGNESIUM HYDROXIDE 2,400 MG/30 ML ORAL.SUSP. PO PRN (06:00)
[2016-09-29 07:00] VITALS: BP 148/46
[2016-09-29] MEDS: IV DEXTROSE 5 %-0.45 % NACL 1,000 ML IV SCH ×2 (07:08→16:59)
[2016-09-29] MEDS: NAPROXEN 500 MG TABLET PO SCH ×2 (08:38→19:54)
[2016-09-29] MEDS: SENNOSIDES/DOCUSATE 8.6/50MG TABLET. PO SCH (08:38)
[2016-09-29] MEDS: MULTIVITAMIN with MINERAL TABLET. PO SCH (08:38)
[2016-09-29] MEDS: ASPIRIN ENTERIC COATED 325 MG TABLET.DR. PO SCH ×2 (08:39→19:55)
[2016-09-29] MEDS: CALCIUM CARBONATE 500 MG TABLET PO SCH ×2 (08:39→16:53)
[2016-09-29] MEDS: LEVOTHYROXINE 112 MCG TABLET PO SCH (08:39)
[2016-09-29] MEDS: FERROUS SULFATE 325 MG TABLET. PO SCH ×2 (08:39→16:53)
[2016-09-29] MEDS: PANTOPRAZOLE 40 MG TABLET.DR. PO SCH (08:39)
[2016-09-29] MEDS ORDERED: NON FORMULARY ITEM (Multivitamin (Multi-Day Vitamins) 1 TAB) PO SCH (09:00)
[2016-09-29] MEDS: FLUTICASONE 50MCG/NASAL SPRAY 16GM BOTTLE. NS SCH (09:00)
[2016-09-29] MEDS ORDERED: NON FORMULARY ITEM (Garlic 1,000 MG) PO SCH (09:00)
[2016-09-29 11:00] VITALS: BP 142/44
[2016-09-29] MEDS: oxyCODONE/APAP 5/325 1 TAB TABLET PO PRN ×2 (12:42→19:53)
--- NOTE | 2016-09-29 14:42 | PDOC ---
PROGRESS NOTES Subjective Subjective States she is doing better today. Denies CP, SOB, palpitations, nausea today. Pain is controlled. Objective Vital Signs Vital Signs Date Time Temp Pulse Resp B/P (MAP) Pulse Ox O2 Delivery O2 Flow Rate FiO2 09/29/16 12:42 Room Air 09/29/16 11:00 98.8 72 18 142/44 (76) 96 98.8 09/29/16 08:00 3.0 Physical Exam Postop dressing dry and intact. Pain catheter and Hemovac in place. Calf soft and NT with negative Harvinder's. Good dorsiflexion and plantarflexion with no evidence of neurovascular injury. Peripheral pulses and light touch sensation intact. Labs Laboratory Tests Test 09/28/16 16:30 Sodium Level 138 mmol/L (136-145) Potassium Level 4.3 mmol/L (3.5-5.1) Chloride Level 103 mmol/L (98-107) Carbon Dioxide Level 26 mmol/L (21-32) Anion Gap 9 (6-14) Blood Urea Nitrogen 19 mg/dL (7-20) Creatinine 0.7 mg/dL (0.6-1.0) Estimated GFR (Cockcroft-Gault) 80.3 Glucose Level 160 mg/dL (70-99) Calcium Level 8.9 mg/dL (8.5-10.1) Magnesium Level 1.9 mg/dL (1.8-2.4) Thyroid Stimulating Hormone (TSH) 0.819 uIU/mL (0.358-3.74) Laboratory Tests Test 09/28/16 16:30 Sodium Level 138 mmol/L (136-145) Potassium Level 4.3 mmol/L (3.5-5.1) Chloride Level 103 mmol/L (98-107) Carbon Dioxide Level 26 mmol/L (21-32) Anion Gap 9 (6-14) Blood Urea Nitrogen 19 mg/dL (7-20) Creatinine 0.7 mg/dL (0.6-1.0) Estimated GFR (Cockcroft-Gault) 80.3 Glucose Level 160 mg/dL (70-99) Calcium Level 8.9 mg/dL (8.5-10.1) Magnesium Level 1.9 mg/dL (1.8-2.4) Thyroid Stimulating Hormone (TSH) 0.819 uIU/mL (0.358-3.74) Imaging Postoperative x-rays reviewed and reveal a total knee arthroplasty in satisfactory position with no apparent complications. Assessment Assessment POD #1 left TKA Problems: Plan Plan of Care Continue POC including DVT ppx and therapy. May WBAT with walker. When cardio agrees, she may be transferred to joint floor. ROBYN LA Sep 29, 2016 14:42
[2016-09-29] MEDS ORDERED: BISACODYL 10 MG SUPP.RECT. PR PRN (16:00)
[2016-09-29 16:30] VITALS: BP 172/70
[2016-09-29] MEDS: PSYLLIUM HUSK (SUGAR FREE) 1 PKT PACKET PO PRN (17:13)
[2016-09-29 17:57] VITALS: BP 146/81
[2016-09-29] MEDS: CETIRIZINE HCL 10 MG TABLET. PO SCH (19:55)
[2016-09-30] MEDS: oxyCODONE/APAP 7.5/325 1 TAB TABLET PO PRN ×5 (01:40→22:52)
[2016-09-30 05:47] LABS: HEMATOCRIT 32.6 % (36.0-47.0)
[2016-09-30] MEDS: PANTOPRAZOLE 40 MG TABLET.DR. PO SCH (05:47)
[2016-09-30] MEDS: LEVOTHYROXINE 112 MCG TABLET PO SCH (05:48)
[2016-09-30 05:51] VITALS: BP 173/71
[2016-09-30] MEDS: FLUTICASONE 50MCG/NASAL SPRAY 16GM BOTTLE. NS SCH (09:00)
[2016-09-30] MEDS: MULTIVITAMIN with MINERAL TABLET. PO SCH (09:04)
[2016-09-30] MEDS: ASPIRIN ENTERIC COATED 325 MG TABLET.DR. PO SCH ×2 (09:05→20:57)
[2016-09-30] MEDS: CALCIUM CARBONATE 500 MG TABLET PO SCH ×2 (09:05→17:25)
[2016-09-30] MEDS: FERROUS SULFATE 325 MG TABLET. PO SCH ×2 (09:05→17:25)
[2016-09-30] MEDS: NAPROXEN 500 MG TABLET PO SCH ×2 (09:05→20:57)
[2016-09-30] MEDS: SENNOSIDES/DOCUSATE 8.6/50MG TABLET. PO SCH (09:05)
--- NOTE | 2016-09-30 16:27 | PATHOLOGY ---
PATHOLOGY REPORT * * * * * * * * FINAL DIAGNOSIS: Segments of bone and soft tissue, left total knee arthroplasty: - Advanced degenerative arthritis. (JPM:mmjemal; 09/30/2016) REPORT ELECTRONICALLY SIGNED BY: Tommy Davey M.D. DATE/TIME: 09/30/2016 16:27 * * * * * * * * GROSS PATHOLOGY: Received in formalin labeled "Yeny Kinney left knee tissue," are multiple segments of bone, including tibial plateau, measuring 11.5 x 9.2 x 2.0 cm in aggregate dimensions admixed with soft tissue; meniscus is present. The specimen shows focal eburnation of the articular surfaces. Report Writer sections of bone and soft tissue are submitted in cassette A1, following decalcification. (CAA; 09/29/2016) INITIAL CPT CODE(S): A; 79840, 01917 Professional services [place] [address] Technical services performed by [facility] at [address] [place] [address], [facility] [address] [address]. SPECIMEN(S) RECEIVED: A.Left knee bone and tissue CLINICAL HISTORY: Left knee OA PATIENT: YENY KINNEY /AGE: 3 1935 (Age: 81) PATIENT #: [id number] ALT CASE #: SPECIMEN COLLECTION DATE: 09/28/2016 SPECIMEN RECEIVED DATE: 09/28/2016 [facility] - [address] [place] [address] - PHONE: [phone] * * * END OF REPORT * * *
[2016-09-30] MEDS: PSYLLIUM HUSK (SUGAR FREE) 1 PKT PACKET PO PRN (17:29)
--- NOTE | 2016-09-30 17:48 | PDOC ---
PROGRESS NOTES Subjective Subjective Pain controlled. No major complaints. Objective Vital Signs Vital Signs Date Time Temp Pulse Resp B/P (MAP) Pulse Ox O2 Delivery O2 Flow Rate FiO2 09/30/16 17:25 Room Air 09/30/16 05:51 98.0 71 18 173/71 (105) 98 98.0 09/29/16 08:00 3.0 Physical Exam Postop dressing and pain catheter have been removed. Spotty bloody drainage only. Calf soft and nontender. Good AROM of ankle. Minimal erythema/warmth. Labs Laboratory Tests Test 09/30/16 05:25 Hemoglobin 11.0 g/dL (12.0-15.5) Hematocrit 32.6 % (36.0-47.0) Mean Corpuscular Hemoglobin Concent 34 g/dL (31-37) Laboratory Tests Test 09/30/16 05:25 Hemoglobin 11.0 g/dL (12.0-15.5) Hematocrit 32.6 % (36.0-47.0) Mean Corpuscular Hemoglobin Concent 34 g/dL (31-37) Imaging Postoperative x-rays and report reviewed by me and show satisfactory alignment and no apparent complications. Assessment Assessment POD #2 TKA Problems: Plan Plan of Care Continue POC. Discharge planning for tomorrow. Aspirin 325 mg po BID and mobilization for DVT prophylaxis. AD ALCANTARA MD Sep 30, 2016 17:48
[2016-09-30 18:00] VITALS: BP 128/46
[2016-09-30] MEDS: CETIRIZINE HCL 10 MG TABLET. PO SCH (20:57)
[2016-10-01] MEDS: LEVOTHYROXINE 112 MCG TABLET PO SCH (06:14)
[2016-10-01] MEDS: PANTOPRAZOLE 40 MG TABLET.DR. PO SCH (06:14)
[2016-10-01 06:15] VITALS: BP 146/64
[2016-10-01 07:57] LABS: HEMATOCRIT 32.6 % (36.0-47.0); HEMOGLOBIN 10.6 g/dL (12.0-15.5)
[2016-10-01] MEDS: FERROUS SULFATE 325 MG TABLET. PO SCH (08:10)
[2016-10-01] MEDS: SENNOSIDES/DOCUSATE 8.6/50MG TABLET. PO SCH (08:10)
[2016-10-01] MEDS: NAPROXEN 500 MG TABLET PO SCH (08:10)
[2016-10-01] MEDS: ASPIRIN ENTERIC COATED 325 MG TABLET.DR. PO SCH (08:10)
[2016-10-01] MEDS: CALCIUM CARBONATE 500 MG TABLET PO SCH (08:10)
[2016-10-01] MEDS: oxyCODONE/APAP 7.5/325 1 TAB TABLET PO PRN ×2 (08:11→12:30)
[2016-10-01] MEDS: MULTIVITAMIN with MINERAL TABLET. PO SCH (08:11)
[2016-10-01] MEDS: FLUTICASONE 50MCG/NASAL SPRAY 16GM BOTTLE. NS SCH (08:14)
--- NOTE | 2016-10-01 11:21 | PDOC ---
PROGRESS NOTES Subjective Subjective Doing well, minimal pain. Objective Vital Signs Vital Signs Date Time Temp Pulse Resp B/P (MAP) Pulse Ox O2 Delivery O2 Flow Rate FiO2 10/01/16 08:11 Room Air 10/01/16 06:15 98.3 70 18 146/64 (91) 96 98.3 09/30/16 20:00 3.0 Physical Exam Dressing with slight bloody drainage only. Labs Laboratory Tests Test 09/30/16 05:25 10/01/16 07:21 Hemoglobin 11.0 g/dL (12.0-15.5) 10.6 g/dL (12.0-15.5) Hematocrit 32.6 % (36.0-47.0) 32.6 % (36.0-47.0) Mean Corpuscular Hemoglobin Concent 34 g/dL (31-37) 33 g/dL (31-37) Laboratory Tests Test 10/01/16 07:21 Hemoglobin 10.6 g/dL (12.0-15.5) Hematocrit 32.6 % (36.0-47.0) Mean Corpuscular Hemoglobin Concent 33 g/dL (31-37) Assessment Assessment POD 3 TKA Problems: Plan Plan of Care Discharge planning for today. Continue DVT proph and PT AD ALCANTARA MD Oct 01, 2016 11:21
[2016-10-01 15:00] VITALS: BP 142/58
== END 2016-10-01 15:10 | DRG 470 ==
LOC: OPSVCIP 05:34 → 2 SOUTH 14:21 → 4 SOUTHEST 09-29 16:20
PROVIDERS: ADMIT Orthopaedic Surgery; ATTEND Orthopaedic Surgery
PROC: 0SRD0J9 Replacement of Left Knee Joint with Synthetic Substitute, Cemented, Open Approach (ICD-10-PCS; principal; 2016-09-28 09:10)
DX: M17.12 Unilateral primary osteoarthritis, left knee (principal); E03.9 Hypothyroidism, unspecified; E78.5 Hyperlipidemia, unspecified; I10 Essential (primary) hypertension; K21.9 Gastro-esophageal reflux disease without esophagitis; Z90.49 Acquired absence of other specified parts of digestive tract; Z90.710 Acquired absence of both cervix and uterus; Z82.49 Family history of ischemic heart disease and other diseases of the circulatory system; Z88.5 Allergy status to narcotic agent; Z88.0 Allergy status to penicillin; Z88.2 Allergy status to sulfonamides; Z88.8 Allergy status to other drugs, medicaments and biological substances; Z91.040 Latex allergy status
CPT/HCPCS: 36415; 73560; 80048; 83735; 84443; 85014; 85018; 86850; 86900; 86901; 88305; 88311; 93005; J0171; J0360; J0780; J1100; J1885; J2001; J2405; J2704; J2765; J2795; J3010; J3260; J3370; J3490; J7030; J7120; 97116; 97150; 97530; 97535; C1769